=== PATIENT | male | born 1955 | race Two or more races ===

== ENCOUNTER → 2020-06-24 07:51 | Outpatient (BNVA) | payer OTHER, SELFPAY | PROVIDERS: PCP Internal Medicine; Visit Provider Internal Medicine Endocrinology, Diabetes & Metabolism | DX: Z13.89 Encounter for screening for other disorder (principal) | CPT/HCPCS: Q3014 ==

== ENCOUNTER 2020-06-24 21:14 | Emergency (ER) | payer OTHER, SELFPAY ==
[2020-06-24 21:23] VITALS: BP 135/68; BP 142/82; PULSE 76; PULSE 78; RESP 18; TEMP 37.2; O2SAT 94; O2SAT 97; BMI 33.5
--- NOTE | 2020-06-24 21:47 | CT_ITS ---
EXAMINATION: CT ABDOMEN AND PELVIS WITH CONTRAST CLINICAL INFORMATION: Left lower quadrant pain with question of perforated diverticulitis COMPARISON: 11/29/2012 TECHNIQUE: Multidetector volumetric images were obtained from the superior aspect of the liver through the pubic symphysis following administration 85 mL of Omnipaque 350 intravenous contrast. Sagittal and coronal reformatted images were obtained on the technologist's workstation. Oral contrast: No This CT examination was performed using dose optimization techniques as appropriate, variously including the following: *Automated exposure control *Adjustment of mA and/or kV according to patient size (this includes techniques or standardized protocols for targeted exams where dose is matched to indication/reason for exam; i.e. extremities or head) *Use of iterative reconstruction technique DLP: 923 mGy-cm FINDINGS: LUNG BASES: The visualized lung bases are unremarkable. There is partial visualization of a left lower lobe perifissural density. Patient status post median sternotomy. LIVER, GALLBLADDER, AND BILIARY TREE: The liver is normal in size, shape, and attenuation. No focal hepatic lesion or biliary ductal dilatation is present. The gallbladder is unremarkable with no evidence of radiopaque gallstones, gallbladder wall thickening, or obvious pericholecystic inflammatory changes. PANCREAS: Unremarkable. SPLEEN: Unremarkable. ADRENAL GLANDS: Unremarkable. KIDNEYS AND URETERS: The kidneys are normal in size, shape, and attenuation. A small right-sided renal cyst is present. A right-sided extrarenal pelvis is noted. No hydronephrosis, hydroureter, or calculi seen. No perinephric stranding. BLADDER: Unremarkable. GASTROINTESTINAL TRACT: A small hiatal hernia is present. Diverticular changes are present in the colon most marked on the left. At the junction of the descending colon and sigmoid, inflammatory changes are present surrounding the colon with some thickening of the anterior pararenal fascia. These findings are consistent with diverticulitis. No extraluminal air or drainable fluid collections are seen. The small and large bowel are otherwise unremarkable. The appendix is unremarkable. ABDOMINAL WALL: No significant hernia is appreciated. Innumerable calcified injection granulomas are noted in both buttocks. LYMPH NODES: No lymphadenopathy seen. VASCULAR: Calcific aortoiliac atherosclerotic changes are present. PELVIC VISCERA: Is mild BPH with the prostate measuring 4.8 x 4.3 x 4.7 cm. OSSEOUS STRUCTURES: Degenerative changes present in the spine most marked at L5-S1 with endplate sclerosis and posterior osteophyte formation. A vacuum phenomenon is present. There is bony fusion of S1 and S2.. CT/CT abdomen pelvis w con IMPRESSION: Acute uncomplicated diverticulitis at the junction of the descending colon and sigmoid colon. Incidental note made of partially visualized left lower lobe. Fissural density, tiny right renal cyst with extrarenal pelvis and mild BPH
--- NOTE | 2020-06-24 21:56 | ED.ABDPAIN ---
HPI - Abdominal Pain General Chief Complaint: General Medical Stated Complaint: [place],ABD PAIN SINCE WEDNESDAY Time Seen by Provider: 06/24/20 21:47 Source: patient Mode of arrival: EMS Limitations: no limitations History of Present Illness HPI narrative: Patient history of diverticulosis , complaining of left lower quadrant pain for last 3 days got worse today in afternoon after lunch had low-grade fever and chills pain gets worse after he eats something or ambulates for coming in ambulance pain was very bad with movements. Patient feels nauseated, no vomiting no blood in the stool no abdominal distention also complaining of headache no recent COVID contact MD elicited complaint: abdominal pain Pertinent past history: diverticulitis Pain Consistency: constant Location: LLQ Severity: moderate Quality: sharp Radiation: LLQ Exacerbating factors: eating and bowel movement Relieving factors: nothing Related Data Home Medications Medication Instructions Recorded Confirmed insulin aspart U-100 100 unit/mL See Rx Instructions SUBCUT .COMPLEX 06/24/20 06/24/20 subcutaneous solution insulin glargine 100 unit/mL 10 unit SUBCUT QPM 06/24/20 06/24/20 subcutaneous solution rosuvastatin 20 mg tablet 20 mg PO BEDTIME 06/24/20 06/24/20 sertraline 100 mg tablet 100 mg PO DAILY 06/24/20 06/24/20 trazodone 100 mg tablet [id number] mg PO BEDTIME 06/24/20 06/24/20 Previous Rx's Medication Instructions Recorded desmopressin 0.1 mg tablet 0.1 mg PO BID 30 Days #60 tab 06/24/20 levothyroxine 75 mcg capsule 75 mcg PO DAILY 30 Days #30 cap 06/24/20 ciprofloxacin HCl [Cipro] 500 mg PO BID #20 tab 06/25/20 metronidazole [Flagyl] 500 mg PO BID #20 tab 06/25/20 tramadol 50 mg PO Q6H PRN #20 tab 06/25/20 Allergies Allergy/AdvReac Type Severity Reaction Status Date / Time atorvastatin [From LIPITOR] AdvReac Unknown LEG Unverified 03/28/20 15:15 WEAKNESS Review of Systems Review of Systems REVIEW OF SYSTEMS: Pertinent positives and negatives are stated above in the history. GEN: Subjective fever with chills and fatigue HEENT: no nasal congestion, sore throat, ear pain NEURO: no headache, dizziness, focal weakness PULM: no cough, shortness of breath CV: no chest pain, palpitations, LE edema ABD: no vomiting, diarrhea : no dysuria, urgency, frequency SKIN: no rash ROS otherwise negative x 10 Physical Exam Vital Signs: Vital Signs: Last Vital Signs Temp 98.9 F 06/24/20 21:23 Pulse 77 06/25/20 00:56 Resp 16 06/25/20 00:56 BP 146/78 H 06/25/20 00:56 Pulse Ox 97 06/25/20 00:56 Body Mass Index 33.5 VITAL SIGNS: Reviewed. GENERAL: Well developed, well nourished, in no acute distress. HEAD: Normocephalic/atraumatic, EYES: PERRLA No pallor/icterus noted OROPHARYNX: Oral mucosa moist no oral lesions NECK: Supple, no adenopathy LUNGS: Normal breath sounds. No adventitious sounds or accessory muscle use CARDIOVASCULAR: Regular rate and rhythm without noted murmurs, no JVD or lower extremity edema. ABDOMEN: Soft, tender left lower quadrant with guarding and rebound tenderness, non-distended with normal bowel sounds. No rigidity. . No palpable masses or hernias noted MUSCULOSKELETAL: No tenderness, deformities, EXTREMITIES: No cyanosis or edema. SKIN: no rashes, ulcerations, jaundice, pallor, or petechiae NEUROLOGIC: Alert and oriented x 3. Strength and sensation to light touch were grossly intact normal speech MDM - Abdominal Pain MDM Narrative Medical decision making narrative: Patient with acute lower quadrant pain likely diverticulitis workup showed normal WBC count and CT scan showed uncomplicated diverticulitis. COVID-19 test is also negative. Patient received Zosyn in the ER for diverticulitis will discharge him home on cipr and Flagyl advised to follow with PCP Differential Diagnosis Differential diagnosis: Likely abdominal pain and diverticulitis Medical Records Attestation: I reviewed the patient's medical records. Lab Data Attestation: I reviewed the patient's lab results. Result diagrams: 06/24/20 23:03 06/24/20 23:03 Labs: Lab Results 06/24/20 06/24/20 06/24/20 Range/Units 23:03 23:03 23:03 WBC 6.4 (4.8-10.8) X10*3/uL RBC 3.65 L (4.60-5.80) X10*6/uL Hgb 10.7 L (14.0-18.0) g/dl Hct 32.6 L (42-52) % MCV 89.3 (80-98) fL MCH 29.3 (27.0-33.0) pg MCHC 32.8 (31.0-36.0) g/dl RDW 14.0 (11.0-16.0) % Plt Count 184 (160-400) X10*3/uL MPV 10.3 (9.4-12.4) fL Immature Gran % (Auto) 0.5 H (0.0-0.4) % Neut % (Auto) 72.3 (45-73) % Lymph % (Auto) 12.6 L (20-40) % [place] % (Auto) 11.5 H (2-11) % Eos % (Auto) 2.8 (0-4) % Baso % (Auto) 0.3 (0-2) % Lymph # (Auto) 0.8 L (1.2-4.9) X10*3/uL [place] # (Auto) 0.7 (0.1-1.2) X10*3/uL Eos # (Auto) 0.2 (0.0-0.4) X10*3/uL Baso # (Auto) 0.0 (0.0-0.2) X10*3/uL Abs Immat Gran (auto) 0.03 (0.00-0.03) X10*3/uL Absolute Neuts (auto) 4.6 (2.0-8.3) X10*3/uL Absolute Nucleated RBC 0.000 (0.0-0.012) X10*3/uL Nucleated RBC % (auto) 0.0 (0.0-0.2) /100WBC Sodium 132 L (135-145) mmol/L Potassium 3.8 (3.3-5.1) mmol/l Chloride 98 (96-108) mmol/L Carbon Dioxide 26 (22-29) mmol/L Anion Gap 12 (12-20) BUN 19 H (9-16) mg/dL Creatinine 0.86 (0.5-1.4) mg/dL Estim Creat Clear Calc 86.2 Estimated GFR > 60 Random Glucose 199 H (60-115) mg/dL Lactic Acid 0.8 (0.5-2.0) mmol/L Calcium 7.9 L (8.4-10.2) mg/dL Total Bilirubin 0.3 (0.0-1.0) mg/dL Direct Bilirubin < 0.2 (0.0-0.5) mg/dL AST 31 (5-37) U/L ALT 37 (0-40) U/L Alkaline Phosphatase 71 (39-117) U/L Total Protein 6.1 L (6.5-8.0) g/dL Albumin 3.8 (3.5-5.0) g/dL Lipase (8-78) U/L Coronavirus (PCR) (Negative) Influenza Type A (PCR) (Negative) Influenza Type B (PCR) (Negative) RSV RNA Qual (PCR) (Negative) 06/24/20 06/24/20 Range/Units 23:03 23:03 WBC (4.8-10.8) X10*3/uL RBC (4.60-5.80) X10*6/uL Hgb (14.0-18.0) g/dl Hct (42-52) % MCV (80-98) fL MCH (27.0-33.0) pg MCHC (31.0-36.0) g/dl RDW (11.0-16.0) % Plt Count (160-400) X10*3/uL MPV (9.4-12.4) fL Immature Gran % (Auto) (0.0-0.4) % Neut % (Auto) (45-73) % Lymph % (Auto) (20-40) % [place] % (Auto) (2-11) % Eos % (Auto) (0-4) % Baso % (Auto) (0-2) % Lymph # (Auto) (1.2-4.9) X10*3/uL [place] # (Auto) (0.1-1.2) X10*3/uL Eos # (Auto) (0.0-0.4) X10*3/uL Baso # (Auto) (0.0-0.2) X10*3/uL Abs Immat Gran (auto) (0.00-0.03) X10*3/uL Absolute Neuts (auto) (2.0-8.3) X10*3/uL Absolute Nucleated RBC (0.0-0.012) X10*3/uL Nucleated RBC % (auto) (0.0-0.2) /100WBC Sodium (135-145) mmol/L Potassium (3.3-5.1) mmol/l Chloride (96-108) mmol/L Carbon Dioxide (22-29) mmol/L Anion Gap (12-20) BUN (9-16) mg/dL Creatinine (0.5-1.4) mg/dL Estim Creat Clear Calc Estimated GFR Random Glucose (60-115) mg/dL Lactic Acid (0.5-2.0) mmol/L Calcium (8.4-10.2) mg/dL Total Bilirubin (0.0-1.0) mg/dL Direct Bilirubin (0.0-0.5) mg/dL AST (5-37) U/L ALT (0-40) U/L Alkaline Phosphatase (39-117) U/L Total Protein (6.5-8.0) g/dL Albumin (3.5-5.0) g/dL Lipase 11 (8-78) U/L Coronavirus (PCR) NEGATIVE (Negative) Influenza Type A (PCR) NEGATIVE (Negative) Influenza Type B (PCR) NEGATIVE (Negative) RSV RNA Qual (PCR) NEGATIVE (Negative) Imaging Data CT scan - abdomen: Attestation: I personally reviewed and interpreted this imaging study as follows: Radiologist's impression: CT/CT abdomen pelvis w con IMPRESSION: Acute uncomplicated diverticulitis at the junction of the descending colon and sigmoid colon. Discharge Plan Discharge Clinical Impression: Acute diverticulitis Patient Disposition: Home, Self-Care Instructions: Diverticulitis (ED) Additional Instructions: Clear fluids advanced as tolerated. Take antibiotic as prescribed. Pain medication as advised. Report to the ER/PCP if increased pain/vomiting/fever Prescriptions: New ciprofloxacin HCl [Cipro] 500 mg tablet 500 mg PO BID Qty: 20 RF: 0 metronidazole [Flagyl] 500 mg tablet 500 mg PO BID Qty: 20 RF: 0 tramadol 50 mg tablet 50 mg PO Q6H PRN (Reason: pain) Qty: 20 RF: 0 No Action insulin aspart U-100 100 unit/mL solution See Rx Instructions subcut .COMPLEX RF: 0 rosuvastatin 20 mg tablet 20 mg PO BEDTIME RF: 0 sertraline 100 mg tablet 100 mg PO DAILY RF: 0 trazodone 100 mg tablet [id number] mg PO BEDTIME RF: 0 Lantus U-100 Insulin 100 unit/mL solution 10 unit subcut QPM RF: 0 desmopressin 0.1 mg tablet 0.1 mg PO BID 30 Days Qty: 60 RF: 5 levothyroxine 75 mcg capsule 75 mcg PO DAILY 30 Days Qty: 30 RF: 6 PMFSH Past Medical History 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 HTN (hypertension) Hyperlipidemia Myocardial infarction Surgical History History of esophagogastroduodenoscopy (EGD) Hx of cardiac catheterization Hx of colonoscopy Hx of tonsillectomy S/P CABG x 2 Stented coronary artery Family History Family History Father Alzheimer disease Mother Diabetes mellitus Hypertension Stroke CVD (cardiovascular disease) Social History Social History Alcohol intake: never Smoking Status: Never smoker Smoked in Last 30 Days: No Use of substances other than those prescribed or required for medical reasons: No Advance Directives: No Advance Directives Information Provided: No
[2020-06-24 23:12] LABS: MANUAL DIFF FLAG NO
[2020-06-24 23:14] LABS: Basophils Percent Auto 0.3 % (0-2); Eosinophils Absolute Auto 0.2 X10*3/uL (0.0-0.4); Eosinophils Percent Auto 2.8 % (0-4); Hematocrit 32.6 % (42-52); Hemoglobin 10.7 g/dl (14.0-18.0); Imm Gran Abs Auto 0.03 X10*3/uL (0.00-0.03); Imm Gran Pct Auto 0.5 % (0.0-0.4); Lymphocytes Absolute Auto 0.8 X10*3/uL (1.2-4.9); Lymphocytes Percent Auto 12.6 % (20-40); Mean Corpuscular HGB Conc 32.8 g/dl (31.0-36.0); Mean Corpuscular Hemoglobin 29.3 pg (27.0-33.0); Mean Corpuscular Volume 89.3 fL (80-98); Mean Platelet Volume 10.3 fL (9.4-12.4); Monocytes Absolute Auto 0.7 X10*3/uL (0.1-1.2); Monocytes Percent Auto 11.5 % (2-11); Neutrophils Absolute Auto 4.6 X10*3/uL (2.0-8.3); Neutrophils Percent Auto 72.3 % (45-73); Platelet Count 184 X10*3/uL (160-400); Red Blood Count 3.65 X10*6/uL (4.60-5.80); White Blood Count 6.4 X10*3/uL (4.8-10.8)
[2020-06-24] MEDS: Morphine Sulfate 4 MG/ML CARTRIDGE IVPUSH (23:14)
[2020-06-24] MEDS: 0.9 % Sodium Chloride 1,000 ML 999 ML IVCONT (23:14)
[2020-06-24] MEDS: ondansetron HCL 4 MG/2 ML VIAL IVPUSH (23:15)
[2020-06-24 23:34] LABS: Lactic Acid 0.8 mmol/L (0.5-2.0)
[2020-06-24 23:37] LABS: Lipase 11 U/L (8-78)
[2020-06-24 23:38] LABS: Alanine Aminotransferase 37 U/L (0-40); Albumin Level 3.8 g/dL (3.5-5.0); Alkaline Phosphatase 71 U/L (39-117); Anion Gap 12 (12-20); Aspartate Amino Transferase 31 U/L (5-37); Bilirubin Direct < 0.2 mg/dL (0.0-0.5); Bilirubin Total 0.3 mg/dL (0.0-1.0); Blood Urea Nitrogen 19 mg/dL (9-16); Calcium 7.9 mg/dL (8.4-10.2); Carbon Dioxide 26 mmol/L (22-29); Chloride 98 mmol/L (96-108); Creatinine Clr Calc Pharmacy 86.2; Estimated Glomerular Filt Rate > 60; Glucose Random 199 mg/dL (60-115); Potassium 3.8 mmol/l (3.3-5.1); Sodium 132 mmol/L (135-145); Total Protein 6.1 g/dL (6.5-8.0)
[2020-06-25] MEDS: iohexoL 350 MG/ML 100 ML INFUS..BTL 85 ML IV (00:09)
[2020-06-25 00:36] LABS: Influenza A PCR NEGATIVE (Negative); Influenza B PCR NEGATIVE (Negative); Resp Syncy Virus RNA Qual PCR NEGATIVE (Negative); SARS COV2 PCR INHOUSE NEGATIVE (Negative)
[2020-06-25] MEDS: Piperacillin Sodium/Tazobactam 3.375 GM in 0.9 % Sodium Chloride 50 ML IV (00:53)
[2020-06-25] MEDS: Ketorolac Tromethamine 30 MG/ML VIAL IVPUSH (00:53)
[2020-06-25 00:56] VITALS: BP 146/78; PULSE 77; RESP 16; O2SAT 97
== END 2020-06-25 01:58 | disposition home or self-care (01) ==
PROVIDERS: Emergency Provider Internal Medicine
DX: K57.32 Diverticulitis of large intestine without perforation or abscess without bleeding (principal); Z20.828 Contact with and (suspected) exposure to other viral communicable diseases; I10 Essential (primary) hypertension; E11.9 Type 2 diabetes mellitus without complications; Z79.4 Long term (current) use of insulin; Z79.899 Other long term (current) drug therapy
CPT/HCPCS: 0241U; 36415; 74177; 80048; 80076; 83605; 83690; 85025; 87040; 96361; 96365; 96375; 99284; J1885; J2270; J2405; J2543; Q9967

== ENCOUNTER 2020-08-13 11:59 | Outpatient (REF) | payer OTHER, SELFPAY ==
[2020-08-13 13:28] LABS: Blood Urea Nitrogen 20 mg/dL (9-16); Estimated Glomerular Filt Rate > 60
== END 2020-08-13 12:00 | disposition home or self-care (01) ==
LOC: HO.LAB 11:59
PROVIDERS: Emergency Medicine; PCP Internal Medicine; Referring Provider Internal Medicine; Visit Provider Internal Medicine Endocrinology, Diabetes & Metabolism
DX: R10.32 Left lower quadrant pain (principal)
CPT/HCPCS: 36415; 82565; 84520

== ENCOUNTER 2020-08-19 09:19 | Outpatient (REF) | payer OTHER, SELFPAY ==
--- NOTE | ~2020-08-19 | CT_ITS ---
EXAMINATION: CT ABDOMEN AND PELVIS WITH CONTRAST CLINICAL INFORMATION: Left lower quadrant pain. COMPARISON: CT abdomen 06/24/2020 TECHNIQUE: Multidetector volumetric images were obtained from the superior aspect of the liver through the pubic symphysis following administration 85 mL of Omnipaque 350 intravenous contrast. Sagittal and coronal reformatted images were obtained on the technologist's workstation. Oral contrast: No This CT examination was performed using dose optimization techniques as appropriate, variously including the following: *Automated exposure control *Adjustment of mA and/or kV according to patient size (this includes techniques or standardized protocols for targeted exams where dose is matched to indication/reason for exam; i.e. extremities or head) *Use of iterative reconstruction technique DLP: 479 mGy-cm FINDINGS: LUNG BASES: The visualized lung bases are unremarkable. LIVER, GALLBLADDER, AND BILIARY TREE: The liver is normal in size, shape, and attenuation. No focal hepatic lesion or biliary ductal dilatation is present. The gallbladder is unremarkable with no evidence of radiopaque gallstones, gallbladder wall thickening, or obvious pericholecystic inflammatory changes. PANCREAS: Unremarkable. SPLEEN: Unremarkable. ADRENAL GLANDS: Unremarkable. KIDNEYS AND URETERS: The kidneys are normal in size, shape, and attenuation. No hydronephrosis, hydroureter, or calculi seen. No perinephric stranding. BLADDER: Unremarkable. GASTROINTESTINAL TRACT: There is scattered stool, gas and diverticuli seen throughout the colon without distention or mural thickening. The small bowel loops are opacified with oral contrast and are normal caliber. Appendix is normal caliber. ABDOMINAL WALL: No significant hernia is appreciated. LYMPH NODES: Normal VASCULAR: Unremarkable. PELVIC VISCERA: There is mild prostate enlargement with irregular peck and central hypodensity. There are multiple bilateral buttock calcified injection granulomas. OSSEOUS STRUCTURES: There is L5-S1 fusion with degenerative disc changes and vacuum disc phenomena L3-L4 and L4-L5 disc levels. There is grade 1 anterol[address]hesis L3 over L4. CT/CT abdomen pelvis w con IMPRESSION: No acute intra-abdominal process seen. Scattered colonic diverticulosis without diverticulitis.
[2020-08-19] MEDS: iohexoL 350 MG/ML 100 ML INFUS..BTL IV (12:06)
[2020-08-19] MEDS: Barium Sulfate Oral (Berry) 450 ML ORAL.SUSP 900 ML PO (12:06)
== END 2020-08-19 09:20 | disposition home or self-care (01) ==
LOC: HO.CT 09:19
PROVIDERS: PCP Internal Medicine; Visit Provider Emergency Medicine
DX: R10.32 Left lower quadrant pain (principal)
CPT/HCPCS: 74177; Q9967

== ENCOUNTER 2020-12-13 06:24 | Outpatient (REF) | payer OTHER, SELFPAY ==
--- NOTE | ~2020-12-13 | XR_ITS ---
EXAMINATION: XR TIBIA AND FIBULA, LEFT CLINICAL INFORMATION: Left lower leg pain COMPARISON: None TECHNIQUE: AP and lateral views of the left tibia and fibula were obtained. FINDINGS: No fracture or focal osseous lesion. There is a tiny metallic body in the soft tissues anterior to the mid tibia. Surgical clips and vascular calcification posterior to the left knee. Distal to this foreign body is a focus of skin thickening/lump with no underlying radiopaque finding or osseous abnormality. XR/XR tibia fibula LT 2V IMPRESSION: Normal left tibia and fibula. There is a tiny metallic foreign body in the subcutaneous soft tissues anterior to the mid tibia.
[2020-12-13 07:36] LABS: Estimated Average Glucose 180 mg/dL; Hemoglobin A1c % 7.9 %
[2020-12-13 07:37] LABS: Creatinine Urine 18.01 mg/dL; Microalbumin Urine < 5.0 mg/L
[2020-12-13 07:39] LABS: Alanine Aminotransferase 20 U/L (0-40); Albumin Level 4.4 g/dL (3.5-5.0); Alkaline Phosphatase 49 U/L (39-117); Aspartate Amino Transferase 23 U/L (5-37); Bilirubin Direct 0.2 mg/dL (0.0-0.5); Bilirubin Total 0.5 mg/dL (0.0-1.0); Cholesterol 217 mg/dL; HDL Cholesterol 63 mg/dL; LDL Cholesterol Calculated 132 mg/dl; Total Protein 6.9 g/dL (6.5-8.0); Triglycerides 114 mg/dL
[2020-12-13 07:51] LABS: Alanine Aminotransferase 20 U/L (0-40); Albumin Level 4.4 g/dL (3.5-5.0); Alkaline Phosphatase 49 U/L (39-117); Anion Gap 12 (12-20); Aspartate Amino Transferase 23 U/L (5-37); Bilirubin Total 0.5 mg/dL (0.0-1.0); Blood Urea Nitrogen 12 mg/dL (9-16); Calcium 9.7 mg/dL (8.4-10.2); Carbon Dioxide 29 mmol/L (22-29); Chloride 92 mmol/L (96-108); Estimated Glomerular Filt Rate > 60; Glucose Fasting 152 mg/dL (60-99); Potassium 4.3 mmol/L (3.3-5.1); Sodium 129 mmol/L (135-145); Total Protein 6.8 g/dL (6.5-8.0)
[2020-12-13 07:53] LABS: Osmolality, Serum 274 mosm/kg (281-305)
[2020-12-13 07:54] LABS: Osmolality Urine 114 mosm/kg (373-1093)
[2020-12-13 08:02] LABS: Free T4 (Free Thyroxine) 0.92 ng/dL (0.71-1.85); Thyroid Stimulating Hormone 0.17 uIU/mL (0.32-4.0)
== END 2020-12-13 06:25 | disposition home or self-care (01) ==
LOC: HO.LAB 06:24
PROVIDERS: Internal Medicine Endocrinology, Diabetes & Metabolism; PCP Internal Medicine; Visit Provider Internal Medicine
DX: E23.2 Diabetes insipidus (principal); I10 Essential (primary) hypertension
CPT/HCPCS: 36415; 73590; 80053; 80061; 80076; 82043; 82248; 83036; 83930; 83935; 84439; 84443

== ENCOUNTER → 2020-12-16 13:01 | Outpatient (BNVA) | payer OTHER, SELFPAY | PROVIDERS: PCP Internal Medicine; Visit Provider Internal Medicine Endocrinology, Diabetes & Metabolism | DX: E23.2 Diabetes insipidus (principal); E03.8 Other specified hypothyroidism | CPT/HCPCS: 99212 ==

== ENCOUNTER 2020-12-23 05:55 | Outpatient (REF) | payer OTHER, SELFPAY ==
[2020-12-23 08:07] LABS: Osmolality, Serum 283 mosm/kg (281-305)
[2020-12-23 08:14] LABS: Anion Gap 15 (12-20); Blood Urea Nitrogen 12 mg/dL (9-16); Calcium 9.7 mg/dL (8.4-10.2); Carbon Dioxide 27 mmol/L (22-29); Chloride 93 mmol/L (96-108); Estimated Glomerular Filt Rate > 60; Glucose Fasting 124 mg/dL (60-99); Sodium 130 mmol/L (135-145)
[2020-12-23 08:39] LABS: Free T4 (Free Thyroxine) 1.01 ng/dL (0.71-1.85)
[2020-12-23 08:50] LABS: Osmolality Urine 174 mosm/kg (373-1093)
[2020-12-24 16:56] LABS: Triiodothyronine T3 Total 74 ng/dL (76-181)
[2020-12-29 00:12] LABS: FT4 by Equilib. Dialysis 1.5 ng/dL (0.9-2.2)
== END 2020-12-23 05:56 | disposition home or self-care (01) ==
LOC: HO.LAB 05:55
PROVIDERS: PCP Internal Medicine; Visit Provider Internal Medicine Endocrinology, Diabetes & Metabolism
DX: E03.8 Other specified hypothyroidism (principal); E23.2 Diabetes insipidus
CPT/HCPCS: 36415; 80048; 83930; 83935; 84439; 84480

== ENCOUNTER 2021-01-01 06:09 | Outpatient (REF) | payer OTHER, SELFPAY ==
[2021-01-01 07:37] LABS: Alanine Aminotransferase 22 U/L (0-40); Aspartate Amino Transferase 26 U/L (5-37); Lipase 11 U/L (8-78)
[2021-01-01 07:47] LABS: ~HepC Num1 15.56 S/CO (0.00-0.79); ~Hepatitis C Antibody Reactive (Nonreactive)
[2021-01-01 08:14] LABS: Anion Gap 9 (12-20); Blood Urea Nitrogen 11 mg/dL (9-16); Calcium 9.2 mg/dL (8.4-10.2); Carbon Dioxide 30 mmol/L (22-29); Chloride 98 mmol/L (96-108); Estimated Glomerular Filt Rate > 60; Glucose Random 122 mg/dL (60-115); Potassium 4.7 mmol/L (3.3-5.1); Sodium 132 mmol/L (135-145)
[2021-01-01 08:32] LABS: HBsAGNum1 0.22 S/CO (0.00-0.99); Hepatitis B Surface Antigen Negative (Negative); ~Hepatitis B Surface Antibody REACTIVE (Nonreactive)
[2021-01-01 10:04] LABS: HBc Num1 11.23 S/CO (0.00-0.79); Hepatitis B Core Antibody Reactive (Nonreactive)
[2021-01-07 20:12] LABS: HepC Viral Load <15 IU/mL
[2021-01-17 09:13] LABS: HCV Log PCR <1.18
== END 2021-01-01 06:10 | disposition home or self-care (01) ==
LOC: HO.LAB 06:09
PROVIDERS: Absent Provider Internal Medicine Endocrinology, Diabetes & Metabolism; PCP Internal Medicine; Visit Provider Emergency Medicine
DX: E23.2 Diabetes insipidus (principal); K76.0 Fatty (change of) liver, not elsewhere classified; R10.11 Right upper quadrant pain; Z86.19 Personal history of other infectious and parasitic diseases
CPT/HCPCS: 36415; 80048; 83690; 84450; 84460; 86704; 86706; 86803; 87340; 87522

== ENCOUNTER 2021-02-10 17:39 | Emergency (ER) | payer OTHER, SELFPAY | END 2021-02-10 20:23 | disposition left against medical advice (07) | PROVIDERS: Emergency Provider Emergency Medicine; PCP Internal Medicine | DX: R07.9 Chest pain, unspecified (principal) ==

== ENCOUNTER 2021-02-11 15:59 | Emergency (ER) | payer OTHER, SELFPAY ==
--- NOTE | 2021-02-11 | ECG_ITS ---
Test Reason : ABDOMIAL PAIN Blood Pressure : / mmHG Vent. Rate : 055 BPM Atrial Rate : 055 BPM P-R Int : 162 ms QRS Dur : 096 ms QT Int : 442 ms P-R-T Axes : 042 072 101 degrees QTc Int : 422 ms Sinus bradycardia Cannot rule out Anterior infarct , age undetermined Abnormal ECG When compared with ECG of 04-JAN-2019 21:12, Nonspecific T wave abnormality no longer evident in Inferior leads T wave inversion less evident in Lateral leads Referred By: Generic ED Physician Electronically Signed By:Michael Ozuna
--- NOTE | ~2021-02-11 | CT_ITS ---
EXAMINATION: CT ABDOMEN AND PELVIS WITHOUT CONTRAST CLINICAL INFORMATION: Reason for Exam abd pain history of diverticulitis . COMPARISON: No pertinent prior studies are available for comparison. TECHNIQUE: Multidetector volumetric imaging was performed from the superior aspect of the liver through the pubic symphysis without contrast per renal stone protocol. Sagittal and coronal reformatted images were obtained on the technologist workstation. This CT examination was performed using dose optimization techniques as appropriate, variously including the following: *Automated exposure control *Adjustment of mA and/or kV according to patient size (this includes techniques or standardized protocols for targeted exams where dose is matched to indication/reason for exam; i.e. extremities or head) *Use of iterative reconstruction technique DLP: 586 mGy-cm. FINDINGS: LUNG BASES: The visualized lung bases are unremarkable. Patient is status post sternotomy. LIVER, GALLBLADDER, BILIARY TREE: The non-contrast liver is normal in size, shape, and attenuation. No focal hepatic lesion or biliary ductal dilatation is present. The gallbladder is contracted but otherwise unremarkable with no evidence of radiopaque gallstones, gallbladder wall thickening, or obvious pericholecystic inflammatory changes. PANCREAS: Atrophic SPLEEN: Unremarkable. ADRENAL GLANDS: Unremarkable. KIDNEYS AND URETERS: The kidneys are normal in size, shape, and attenuation. No hydronephrosis, hydroureter, or calculi seen. No perinephric stranding. BLADDER: Unremarkable. GASTROINTESTINAL TRACT: Prominent amount of stool in the colon. I do not appreciate any obvious obstructive change. Scattered colonic diverticula but no obvious diverticulitis. Normal-appearing appendix in the right lower quadrant. Visualized small bowel unremarkable ABDOMINAL WALL: No significant hernia is appreciated. LYMPHOVASCULAR STRUCTURES: Vascular calcification within the aorta iliac system. No bulky adenopathy.. PELVIC VISCERA: Unremarkable. OSSEUS STRUCTURES: Transitional vertebra at the lumbosacral junction similar to the prior study CT/CT abdomen pelvis wo con IMPRESSION: Chronic appearing changes as described above with no acute superimposed process compared to the 08/19/2020 exam.
[2021-02-11 17:00] VITALS: BP 147/67; PULSE 57; RESP 18; TEMP 36.7; O2SAT 98; BMI 29.9
--- NOTE | 2021-02-11 19:48 | ED.ABDPAIN ---
HPI - Abdominal Pain General Chief Complaint: Abdominal Pain Stated Complaint: abdominal pain Time Seen by Provider: 02/11/21 19:45 Source: patient Mode of arrival: ambulatory Limitations: no limitations History of Present Illness HPI narrative: 65 years old male came in for evaluation of abdominal pain. Abdominal pain started 5 days ago, localized to the upper abdomen, feeling like colicky pain, with no radiation, worsening by food, no alleviating factor, associated with nausea but no vomiting, patient had loose bowel movement this morning but unable to pass gas. Never had similar pain in the past. Patient has been eating with normal appetite. Related Data Home Medications Medication Instructions Recorded Confirmed insulin aspart U-100 100 unit/mL See Rx Instructions SUBCUT .COMPLEX 06/24/20 12/16/20 subcutaneous solution insulin glargine 100 unit/mL 10 unit SUBCUT QPM 06/24/20 12/16/20 subcutaneous solution (Lantus U-100 Insulin) sertraline 100 mg tablet 100 mg PO DAILY 06/24/20 12/16/20 trazodone 100 mg tablet [id number] mg PO BEDTIME 06/24/20 12/16/20 Previous Rx's Medication Instructions Recorded ciprofloxacin HCl 500 mg tablet 500 mg PO BID #20 tab 06/25/20 (Cipro) metronidazole 500 mg tablet 500 mg PO BID #20 tab 06/25/20 (Flagyl) tramadol 50 mg tablet 50 mg PO Q6H PRN #20 tab 06/25/20 aspirin 81 mg tablet,delayed 81 mg PO DAILY #90 tab 11/11/20 release (Adult Low Dose Aspirin) rosuvastatin 20 mg tablet 20 mg PO DAILY #30 tab 11/12/20 desmopressin 0.1 mg tablet 0.1 mg PO BEDTIME 30 Days #30 tab 12/16/20 levothyroxine 88 mcg tablet 88 mcg PO DAILY 90 Days #90 tab 12/16/20 Allergies Allergy/AdvReac Type Severity Reaction Status Date / Time atorvastatin [From LIPITOR] AdvReac Unknown LEG Unverified 03/28/20 15:15 WEAKNESS lisinopril AdvReac Unknown Verified 02/11/21 17:00 Review of Systems Review of Systems All other systems are reviewed and are negative Constitutional: Reports as per HPI and Reports no additional constitutional complaints Eyes: Reports as per HPI and Reports no additional eye complaints Reports system reviewed and no additional complaints, except as documented Cardiovascular: Reports as per HPI and Reports no additional cardiovascular complaints Respiratory: Reports as per HPI and Reports no additional respiratory complaints Gastrointestinal: Reports as per HPI and Reports no additional gastrointestinal complaints Genitourinary: Reports no additional female genitourinary complaints Musculoskeletal: Reports no additional musculoskeletal complaints Skin/Breast: Reports system reviewed and no additional complaints, except as docu Psychiatric: Reports no additional psychiatric complaints Endocrine: Reports no additional endocrine complaints Hematologic/Lymphatic: Reports no additional hematologic/lymphatic complaints Allergic/Immunologic: Reports no additional allergic/immunologic complaints Reports system reviewed and no additional complaints, except as documented and Reports Abnormal speech present Physical Exam Vital Signs: Vital Signs: Last Vital Signs Temp 98.2 F 02/11/21 21:12 Pulse 56 02/11/21 21:12 Resp 16 02/11/21 21:12 BP 141/69 H 02/11/21 21:12 Pulse Ox 99 02/11/21 21:12 Body Mass Index 29.9 Vital signs have been reviewed as appeared to be correct. Blood pressure normal. Heart rate normal. Respiration rate normal. Temperature normal. Oxygen saturation normal. Appearance: Alert. Oriented X3. No acute distress. Head: Normal external exam. Normocephalic. Atraumatic. No Ruiz signs noted. No raccoon eyes noted Eyes: PERRLA. EOMI. Conjunctiva and sclera normal. Eyelids normal. ENT: TM's Normal. Pharynx normal. Uvula midline. Moist mucous membranes. No trismus noted. No drooling noted. No muffled voice noted. Neck: Normal inspection. Neck supple. FROM. No adenopathy. Thyroid Normal. No meningeal signs. No neck mass noted. CVS: Normal heart rate and rhythm. Heart sound normal. No murmurs noted. Pulses normal throughout. Respiratory: No respiratory distress. Painless inspiration. Breath sounds normal. No wheezes/rales/rhonchi noted. Chest nontender. No accessory muscle usage noted or decreased air movement noted. Abdomen: Soft and nontender. Bowel sounds normal in all 4 quadrants. No distention noted. No organomegaly noted. No visible injury noted. Back: No CVA tenderness. Full range of motion noted. Skin: Skin warm and dry. Normal skin color. Normal skin turgor. No rashes/lesions/lacerations noted. Extremities: No lower extremity edema. Extremities exhibit normal range of motion. Extremities nontender. Neuro: Oriented X 3. No motor deficit. No sensory deficit. Reflexes normal. Course Course Course Narrative: Assessment and plan. 65-year-old male came in with 5 days of abdominal pain, CT of the abdomen pelvis is consistent with constipation. No other acute pathology found on the CT. Chronic hyponatremia patient was diagnosed with diabetes insipidus. Patient was instructed to follow-up with PCP and get him referral to GI MDM - Abdominal Pain Medical Records Attestation: I reviewed the patient's medical records. Lab Data Attestation: I reviewed the patient's lab results. Result diagrams: 02/11/21 20:34 02/11/21 20:34 Labs: Lab Results 02/11/21 02/11/21 02/11/21 Range/Units 20:34 20:34 20:34 WBC 6.8 (4.8-10.8) X10*3/uL RBC 4.06 L (4.60-5.80) X10*6/uL Hgb 12.1 L (14.0-18.0) g/dl Hct 35.4 L (42-52) % MCV 87.2 (80-98) fL MCH 29.8 (27.0-33.0) pg MCHC 34.2 (31.0-36.0) g/dl RDW 13.7 (11.0-16.0) % Plt Count 195 (160-400) X10*3/uL MPV 9.6 (9.4-12.4) fL Immature Gran % (Auto) 0.1 (0.0-0.4) % Neut % (Auto) 69.4 (45-73) % Lymph % (Auto) 17.5 L (20-40) % Arroyo % (Auto) 10.8 (2-11) % Eos % (Auto) 2.1 (0-4) % Baso % (Auto) 0.1 (0-2) % Lymph # (Auto) 1.2 (1.2-4.9) X10*3/uL [place]royo # (Auto) 0.7 (0.1-1.2) X10*3/uL Eos # (Auto) 0.1 (0.0-0.4) X10*3/uL Baso # (Auto) 0.0 (0.0-0.2) X10*3/uL Abs Immat Gran (auto) 0.01 (0.00-0.03) X10*3/uL Absolute Neuts (auto) 4.7 (2.0-8.3) X10*3/uL Absolute Nucleated RBC 0.000 (0.0-0.012) X10*3/uL Nucleated RBC % (auto) 0.0 (0.0-0.2) /100WBC Sodium 127 L (135-145) mmol/L Potassium 4.4 (3.3-5.1) mmol/L Chloride 93 L (96-108) mmol/L Carbon Dioxide 25 (22-29) mmol/L Anion Gap 13 (12-20) BUN 13 (9-16) mg/dL Creatinine 0.66 (0.5-1.4) mg/dL Estim Creat Clear Calc 105.0 Estimated GFR > 60 Random Glucose 98 (60-115) mg/dL Calcium 8.7 (8.4-10.2) mg/dL Total Bilirubin 0.3 (0.0-1.0) mg/dL Direct Bilirubin < 0.2 (0.0-0.5) mg/dL AST 32 (5-37) U/L ALT 31 (0-40) U/L Alkaline Phosphatase 54 (39-117) U/L Troponin I High Sens 3.9 (<3.5-35.0) ng/L B-Natriuretic Peptide 56 (<100) pg/mL Total Protein 6.8 (6.5-8.0) g/dL Albumin 4.3 (3.5-5.0) g/dL Lipase 8 (8-78) U/L Imaging Data CT scan - abdomen: Radiologist's impression: Chronic appearing changes as described above with no acute superimposed process compared to the 08/19/2020 exam. Discharge Plan Discharge Clinical Impression: Chronic hyponatremia Abdominal pain Qualifiers: Abdominal location: unspecified location Qualified Code(s): R10.9 - Unspecified abdominal pain Patient Disposition: Home, Self-Care Instructions: Abdominal Pain (ED) Prescriptions: No Action aspirin [Adult Low Dose Aspirin] 81 mg tablet,delayed release (DR/EC) 81 mg PO DAILY Qty: 90 RF: 0 rosuvastatin 20 mg tablet 20 mg PO DAILY Qty: 30 RF: 3 ciprofloxacin HCl [Cipro] 500 mg tablet 500 mg PO BID Qty: 20 RF: 0 metronidazole [Flagyl] 500 mg tablet 500 mg PO BID Qty: 20 RF: 0 tramadol 50 mg tablet 50 mg PO Q6H PRN (Reason: pain) Qty: 20 RF: 0 desmopressin 0.1 mg tablet 0.1 mg PO BEDTIME 30 Days Qty: 30 RF: 5 levothyroxine 88 mcg tablet 88 mcg PO DAILY 90 Days Qty: 90 RF: 2 insulin aspart U-100 100 unit/mL solution See Rx Instructions subcut .COMPLEX RF: 0 sertraline 100 mg tablet 100 mg PO DAILY RF: 0 trazodone 100 mg tablet [id number] mg PO BEDTIME RF: 0 Lantus U-100 Insulin 100 unit/mL solution 10 unit subcut QPM RF: 0 Referrals: Gurjit Atkins MD [Primary Care Provider] - 2 days [facility] Past Medical History 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
--- NOTE | 2021-02-11 19:57 | PC.NURSE ---
PT AMBULATED TO CT SCAN WITHOUT ISSUE. CLIENT SEEN EATING A COOKIE IN HIS ROOM AND DRINKING WATER. CLIENT APPEARED IN NAD.
[2021-02-11 20:06] VITALS: BP 166/69; PULSE 58; RESP 18; TEMP 36.9; O2SAT 95
[2021-02-11] MEDS: 0.9 % Sodium Chloride 1,000 ML 999 ML IVCONT (20:07)
[2021-02-11] MEDS: Famotidine/PF 20 MG/2 ML VIAL IVPUSH (20:07)
[2021-02-11 20:38] LABS: MANUAL DIFF FLAG NO
[2021-02-11 20:39] LABS: Basophils Percent Auto 0.1 % (0-2); Eosinophils Absolute Auto 0.1 X10*3/uL (0.0-0.4); Eosinophils Percent Auto 2.1 % (0-4); Hematocrit 35.4 % (42-52); Hemoglobin 12.1 g/dl (14.0-18.0); Imm Gran Abs Auto 0.01 X10*3/uL (0.00-0.03); Imm Gran Pct Auto 0.1 % (0.0-0.4); Lymphocytes Absolute Auto 1.2 X10*3/uL (1.2-4.9); Lymphocytes Percent Auto 17.5 % (20-40); Mean Corpuscular HGB Conc 34.2 g/dl (31.0-36.0); Mean Corpuscular Hemoglobin 29.8 pg (27.0-33.0); Mean Corpuscular Volume 87.2 fL (80-98); Mean Platelet Volume 9.6 fL (9.4-12.4); Monocytes Absolute Auto 0.7 X10*3/uL (0.1-1.2); Monocytes Percent Auto 10.8 % (2-11); Neutrophils Absolute Auto 4.7 X10*3/uL (2.0-8.3); Neutrophils Percent Auto 69.4 % (45-73); Platelet Count 195 X10*3/uL (160-400); Red Blood Count 4.06 X10*6/uL (4.60-5.80); Red Cell Distribution Width 13.7 % (11.0-16.0); White Blood Count 6.8 X10*3/uL (4.8-10.8)
[2021-02-11 21:02] LABS: Alanine Aminotransferase 31 U/L (0-40); Albumin Level 4.3 g/dL (3.5-5.0); Alkaline Phosphatase 54 U/L (39-117); Anion Gap 13 (12-20); Aspartate Amino Transferase 32 U/L (5-37); Bilirubin Direct < 0.2 mg/dL (0.0-0.5); Bilirubin Total 0.3 mg/dL (0.0-1.0); Blood Urea Nitrogen 13 mg/dL (9-16); Calcium 8.7 mg/dL (8.4-10.2); Carbon Dioxide 25 mmol/L (22-29); Chloride 93 mmol/L (96-108); Estimated Glomerular Filt Rate > 60; Glucose Random 98 mg/dL (60-115); Lipase 8 U/L (8-78); Potassium 4.4 mmol/L (3.3-5.1); Sodium 127 mmol/L (135-145); Total Protein 6.8 g/dL (6.5-8.0)
[2021-02-11 21:06] LABS: B Type Natriuretic Peptide 56 pg/mL (<100); Troponin-I High Sensitivity 3.9 ng/L (<3.5-35.0)
[2021-02-11 21:12] VITALS: BP 141/69; PULSE 56; RESP 16; TEMP 36.8; O2SAT 99
--- NOTE | 2021-02-11 21:33 | PC.NURSE ---
pt ambulated to bathroom for urine sample
[2021-02-11 21:41] VITALS: BP 154/71; PULSE 100; RESP 18; TEMP 36.9; O2SAT 100
[2021-02-11 21:50] LABS: Glucose Urine UA NEG (NEG); Leukocyte Esterase Urine NEG (NEG); Nitrite Urine NEG (NEG); Specific Gravity - Urine 1.015 (1.005-1.025); Urine Blood NEG (NEG); Urine Ketones NEG (NEG); Urine Protein NEG (NEG-TRACE)
[2021-02-11 22:01] LABS: Appearance Urine CLEAR; Color Urine YELLOW
== END 2021-02-11 22:09 | disposition home or self-care (01) ==
PROVIDERS: Emergency Provider Emergency Medicine; PCP Internal Medicine
DX: E87.1 Hypo-osmolality and hyponatremia (principal); R10.9 Unspecified abdominal pain; I25.10 Atherosclerotic heart disease of native coronary artery without angina pectoris; E11.9 Type 2 diabetes mellitus without complications; Z79.4 Long term (current) use of insulin; Z79.899 Other long term (current) drug therapy
CPT/HCPCS: 36415; 74176; 80048; 80076; 81003; 83690; 83880; 84484; 85025; 93005; 96365; 96375; 99284

== ENCOUNTER 2021-02-27 06:47 | Outpatient (REF) | payer OTHER, SELFPAY ==
[2021-02-27 07:48] LABS: Anion Gap 8 (12-20); Blood Urea Nitrogen 10 mg/dL (9-16); Calcium 9.3 mg/dL (8.4-10.2); Carbon Dioxide 31 mmol/L (22-29); Chloride 100 mmol/L (96-108); Estimated Glomerular Filt Rate > 60; Glucose Random 148 mg/dL (60-115); Potassium 4.4 mmol/L (3.3-5.1); Sodium 135 mmol/L (135-145)
[2021-02-27 08:09] LABS: Free T4 (Free Thyroxine) 0.84 ng/dL (0.71-1.85); Thyroid Stimulating Hormone 1.69 uIU/mL (0.32-4.0)
[2021-02-27 08:23] LABS: Osmolality, Serum 293 mosm/kg (281-305)
[2021-02-27 09:46] LABS: Osmolality Urine 123 mosm/kg (373-1093)
[2021-02-28 13:51] LABS: Follicle Stimulating Hormone 8.9 mIU/mL (1.6-8.0); Lutenizing Hormone 4.3 mIU/mL (1.6-15.2); Prolactin 6.2 ng/mL (2.0-18.0); Triiodothyronine T3 Total 62 ng/dL (76-181)
[2021-02-28 16:37] LABS: Adrenocorticotropic Hormone 34 pg/mL (6-50)
[2021-02-28 19:10] LABS: Sex Hormone Binding Globulin 39 nmol/L (22-77)
[2021-03-03 13:51] LABS: IGF-1 (Somatomedin C) 106 ng/mL (41-279); IGF-1 Z Score (Male) -0.3 SD (-2.0 - +2.0)
[2021-03-04 16:16] LABS: Testosterone, Free 79.1 pg/mL (35.0-155.0); Testosterone, Total 460 ng/dL (250-1100)
== END 2021-02-27 06:48 | disposition home or self-care (01) ==
LOC: HO.LAB 06:47
PROVIDERS: PCP Internal Medicine; Visit Provider Internal Medicine
DX: E23.2 Diabetes insipidus (principal)
CPT/HCPCS: 36415; 80048; 82024; 82533; 83001; 83002; 83930; 83935; 84146; 84270; 84305; 84402; 84403; 84439; 84443; 84480

== ENCOUNTER 2021-03-03 06:11 | Outpatient (REF) | payer OTHER, SELFPAY ==
[2021-03-03 07:19] LABS: Osmolality Urine 445 mosm/kg (373-1093)
[2021-03-03 07:28] LABS: Osmolality, Serum 282 mosm/kg (281-305)
[2021-03-03 07:34] LABS: Anion Gap 10 (12-20); Blood Urea Nitrogen 16 mg/dL (9-16); Calcium 9.3 mg/dL (8.4-10.2); Carbon Dioxide 31 mmol/L (22-29); Chloride 95 mmol/L (96-108); Estimated Glomerular Filt Rate > 60; Glucose Random 150 mg/dL (60-115); Potassium 5.1 mmol/L (3.3-5.1); Sodium 131 mmol/L (135-145)
== END 2021-03-03 06:12 | disposition home or self-care (01) ==
LOC: HO.LAB 06:11
PROVIDERS: PCP Internal Medicine; Visit Provider Internal Medicine
DX: E23.2 Diabetes insipidus (principal)
CPT/HCPCS: 36415; 80048; 83930; 83935

== ENCOUNTER 2021-03-04 06:08 | Outpatient (REF) | payer OTHER, SELFPAY ==
[2021-03-04 08:14] LABS: Anion Gap 10 (12-20); Blood Urea Nitrogen 13 mg/dL (9-16); Calcium 9.3 mg/dL (8.4-10.2); Carbon Dioxide 29 mmol/L (22-29); Chloride 102 mmol/L (96-108); Estimated Glomerular Filt Rate > 60; Glucose Random 155 mg/dL (60-115); Sodium 136 mmol/L (135-145)
== END 2021-03-04 06:09 | disposition home or self-care (01) ==
LOC: HO.LAB 06:08
PROVIDERS: PCP Internal Medicine; Visit Provider Internal Medicine
DX: E23.2 Diabetes insipidus (principal)
CPT/HCPCS: 36415; 80048

== ENCOUNTER 2021-03-05 15:20 | Outpatient (REF) | payer OTHER, SELFPAY ==
[2021-03-05 17:01] LABS: Anion Gap 12 (12-20); Blood Urea Nitrogen 20 mg/dL (9-16); Calcium 9.6 mg/dL (8.4-10.2); Carbon Dioxide 28 mmol/L (22-29); Chloride 101 mmol/L (96-108); Estimated Glomerular Filt Rate > 60; Glucose Random 99 mg/dL (60-115); Potassium 4.3 mmol/L (3.3-5.1); Sodium 137 mmol/L (135-145)
== END 2021-03-05 15:21 | disposition home or self-care (01) ==
LOC: HO.LAB 15:20
PROVIDERS: PCP Internal Medicine; Visit Provider Internal Medicine
DX: E23.2 Diabetes insipidus (principal)
CPT/HCPCS: 36415; 80048

== ENCOUNTER 2021-03-06 14:12 | Emergency (ER) | payer OTHER, SELFPAY ==
[2021-03-06 14:14] VITALS: BP 139/57; PULSE 70; RESP 16; TEMP 36.8; O2SAT 98; BMI 28.1
--- NOTE | 2021-03-06 14:48 | ECG_ITS ---
Test Reason : ABNORMAL LABS Blood Pressure : / mmHG Vent. Rate : 068 BPM Atrial Rate : 068 BPM P-R Int : 152 ms QRS Dur : 094 ms QT Int : 468 ms P-R-T Axes : 014 066 093 degrees QTc Int : 497 ms Normal sinus rhythm Normal ECG When compared with ECG of 11-FEB-2021 17:14, QT has lengthened Referred By: Yuni Martines Electronically Signed By:GEE SCHWARTZ
--- NOTE | 2021-03-06 14:55 | ED.RECABL ---
HPI - Recheck/Abnormal Lab/Rx General Chief Complaint: Recheck/Abnormal Lab/Rx Stated Complaint: abnormal labs Time Seen by Provider: 03/06/21 14:33 Source: patient Mode of arrival: ambulatory History of Present Illness HPI narrative: 65-year-old male with a past medical history of CAD, central hypothyroidism, CHF, diabetes insipidus secondary to vasopressin deficiency, HTN, cardiac catheterization, HLD, [place] s/p CABG x2, presenting to the ED complaining of suspected abnormal sodium secondary to headache, generalized fatigue/weakness, and confusion. Admits to similar symptoms in the past. Denies fever, chills, new SOB/CP, abdominal pain, nausea/vomiting. Reports increased water intake and polyuria Related Data Home Medications Medication Instructions Recorded Confirmed insulin aspart U-100 100 unit/mL See Rx Instructions SUBCUT .COMPLEX 06/24/20 12/16/20 subcutaneous solution insulin glargine 100 unit/mL 10 unit SUBCUT QPM 06/24/20 12/16/20 subcutaneous solution (Lantus U-100 Insulin) sertraline 100 mg tablet 100 mg PO DAILY 06/24/20 12/16/20 trazodone 100 mg tablet [id number] mg PO BEDTIME 06/24/20 12/16/20 Previous Rx's Medication Instructions Recorded ciprofloxacin HCl 500 mg tablet 500 mg PO BID #20 tab 06/25/20 (Cipro) metronidazole 500 mg tablet 500 mg PO BID #20 tab 06/25/20 (Flagyl) tramadol 50 mg tablet 50 mg PO Q6H PRN #20 tab 06/25/20 aspirin 81 mg tablet,delayed 81 mg PO DAILY #90 tab 11/11/20 release (Adult Low Dose Aspirin) rosuvastatin 20 mg tablet 20 mg PO DAILY #30 tab 11/12/20 desmopressin 0.1 mg tablet 0.1 mg PO BEDTIME 30 Days #30 tab 12/16/20 levothyroxine 88 mcg tablet 88 mcg PO DAILY 90 Days #90 tab 12/16/20 Allergies Allergy/AdvReac Type Severity Reaction Status Date / Time atorvastatin [From LIPITOR] AdvReac Unknown LEG Unverified 03/28/20 15:15 WEAKNESS lisinopril AdvReac Unknown Verified 02/11/21 17:00 Review of Systems Review of Systems: Constitutional: No Fever, No Chills, + Fatigue, + Malaise ENT/Mouth: No Ear Pain, No Nasal Congestion, No sore throat, No Rhinorrhea Eyes: No Eye Pain, No Swelling, No Redness, No Foreign Body, No Discharge, No Vision Changes Cardiovascular: No Chest Pain, No SOB,No Edema, No Palpitations Respiratory: No Cough, No Sputum, No Wheezing, No Dyspnea Gastrointestinal: No Nausea, No Vomiting, No Diarrhea, No Constipation, No Abdominal pain Genitourinary: No Dysuria, No Urinary Frequency, No Hematuria, No Flank Pain, No Urinary Flow Changes Musculoskeletal: No joint pain, No Myalgias Skin: No Skin Lesions, No rash Neuro: + Weakness, No Numbness, No Dizziness, + Headache Endocrine: + Polyuria, + Polydipsia Yes all other systems are reviewed and are negative Neurologic: Denies Abnormal speech present [facility] Past Medical History Attestation statement: The following information was validated with the patient. 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 HTN (hypertension) Hyperlipidemia Myocardial infarction Surgical History History of esophagogastroduodenoscopy (EGD) Hx of cardiac catheterization Hx of colonoscopy Hx of tonsillectomy S/P CABG x 2 Stented coronary artery Family History Family History Father Alzheimer disease Mother Diabetes mellitus Hypertension Stroke CVD (cardiovascular disease) Social History Social History Alcohol intake: never Smoked in Last 30 Days: No Use of substances other than those prescribed or required for medical reasons: No Advance Directives: No Advance Directives Information Provided: No Physical Exam Vital Signs: Vital Signs: Last Vital Signs Temp 98.5 F 03/06/21 15:20 Pulse 66 03/06/21 15:20 Resp 18 03/06/21 15:20 BP 106/52 L 03/06/21 15:20 Pulse Ox 97 03/06/21 15:20 Body Mass Index 28.1 Const: General: cooperative and healthy appearing Orientation/consciousness: patient oriented x3 Limitations: no limitations HENMT: Head: Yes normal to inspection Ears: hearing grossly normal bilaterally General nose exam: Normal external nose present Face and sinus: Yes normal facial exam Eyes: General: appearance normal, both eyes and all related structures EOM: EOMs intact bilaterally Neck: Neck: Yes normal visual inspection Resp: Effort & Inspection: normal respiratory effort Auscultation: clear to auscultation bilaterally, no rales and no wheezes Cardio: Rate: regular rate Heart sounds: S1 normal heart sound present and S2 normal heart sound present GI: Inspection: Yes normal to inspection Palpation (GI): Soft to palpation, nontender and no guarding Skin: Rashes: no rashes Wounds: no wounds Neuro: General: patient oriented x3, gait normal, tone normal, moves all extremities and no focal motor deficits Cognition (Neuro): normal cognition Speech: No Abnormal speech present Gait exam (Neuro): Normal gait present Extrem: General: Yes normal to inspection Course Course Course Narrative: -H&H at patient's baseline, sodium 134 > discussed results with patient including worrisome signs and symptoms and strict return precautions and needed continuation of home prescribed medications and follow up with his marketing campaign analyst, he verbalized understanding feel safe for discharge home MDM - Recheck/Abnormal Lab/Rx MDM Narrative Medical decision making narrative: 65-year-old male with a past medical history of CAD, central hypothyroidism, CHF, diabetes insipidus secondary to vasopressin deficiency, HTN, cardiac catheterization, HLD, [place] s/p CABG x2, presenting to the ED complaining of suspected abnormal sodium secondary to headache, generalized fatigue/weakness, and confusion. On exam VSS, NAD/well-appearing, ambulating with steady gait, no focal neuro deficits, A&O x3. Concern for hyper or hyponatremia vs other metabolic abnormalities. Low concern for CVA/TIA. Low concern for infectious etiology Plan: EKG, labs, UA, reassess Medical Records Attestation: I reviewed the patient's medical records. Lab Data Attestation: I reviewed the patient's lab results. Result diagrams: 03/06/21 15:15 03/06/21 15:15 Labs: Lab Results 03/06/21 03/06/21 03/06/21 Range/Units 15:15 15:15 15:15 WBC 7.4 (4.8-10.8) X10*3/uL RBC 3.79 L (4.60-5.80) X10*6/uL Hgb 11.2 L (14.0-18.0) g/dl Hct 33.9 L (42-52) % MCV 89.4 (80-98) fL MCH 29.6 (27.0-33.0) pg MCHC 33.0 (31.0-36.0) g/dl RDW 13.6 (11.0-16.0) % Plt Count 221 (160-400) X10*3/uL MPV 10.1 (9.4-12.4) fL Immature Gran % (Auto) 0.3 (0.0-0.4) % Neut % (Auto) 67.3 (45-73) % Lymph % (Auto) 18.5 L (20-40) % Pettis % (Auto) 11.6 H (2-11) % Eos % (Auto) 1.9 (0-4) % Baso % (Auto) 0.4 (0-2) % Lymph # (Auto) 1.4 (1.2-4.9) X10*3/uL [place]ettis # (Auto) 0.9 (0.1-1.2) X10*3/uL Eos # (Auto) 0.1 (0.0-0.4) X10*3/uL Baso # (Auto) 0.0 (0.0-0.2) X10*3/uL Abs Immat Gran (auto) 0.02 (0.00-0.03) X10*3/uL Absolute Neuts (auto) 5.0 (2.0-8.3) X10*3/uL Absolute Nucleated RBC 0.000 (0.0-0.012) X10*3/uL Nucleated RBC % (auto) 0.0 (0.0-0.2) /100WBC Sodium 134 L (135-145) mmol/L Potassium 3.8 (3.3-5.1) mmol/L Chloride 93 L (96-108) mmol/L Carbon Dioxide 32 H (22-29) mmol/L Anion Gap 13 (12-20) BUN 18 H (9-16) mg/dL Creatinine 0.82 (0.5-1.4) mg/dL Estim Creat Clear Calc 82.1 Estimated GFR > 60 Random Glucose 139 H D (60-115) mg/dL Calcium 9.1 (8.4-10.2) mg/dL Magnesium 2.1 (1.6-2.6) mg/dL Total Bilirubin 0.4 (0.0-1.0) mg/dL Direct Bilirubin < 0.2 (0.0-0.5) mg/dL AST 26 (5-37) U/L ALT 20 (0-40) U/L Alkaline Phosphatase 58 (39-117) U/L Total Protein 6.9 (6.5-8.0) g/dL Albumin 4.3 (3.5-5.0) g/dL Discharge Plan Discharge Clinical Impression: Headache Patient Disposition: Home, Self-Care Instructions: Acute Headache (ED) Additional Instructions: Your blood work was reassuring your sodium is 134 today Continue taking home prescribed medications including your desmopressin Please follow-up with your marketing campaign analyst and her primary care doctor If her symptoms persist or worsen, become more constant or unbearable please return to the ED Prescriptions: No Action aspirin [Adult Low Dose Aspirin] 81 mg tablet,delayed release (DR/EC) 81 mg PO DAILY Qty: 90 RF: 0 rosuvastatin 20 mg tablet 20 mg PO DAILY Qty: 30 RF: 3 ciprofloxacin HCl [Cipro] 500 mg tablet 500 mg PO BID Qty: 20 RF: 0 metronidazole [Flagyl] 500 mg tablet 500 mg PO BID Qty: 20 RF: 0 tramadol 50 mg tablet 50 mg PO Q6H PRN (Reason: pain) Qty: 20 RF: 0 desmopressin 0.1 mg tablet 0.1 mg PO BEDTIME 30 Days Qty: 30 RF: 5 levothyroxine 88 mcg tablet 88 mcg PO DAILY 90 Days Qty: 90 RF: 2 insulin aspart U-100 100 unit/mL solution See Rx Instructions subcut .COMPLEX RF: 0 sertraline 100 mg tablet 100 mg PO DAILY RF: 0 trazodone 100 mg tablet [id number] mg PO BEDTIME RF: 0 Lantus U-100 Insulin 100 unit/mL solution 10 unit subcut QPM RF: 0 Referrals: Morelia Raya MD [Physician] - 2 days
[2021-03-06 15:20] VITALS: BP 106/52; PULSE 66; RESP 18; TEMP 36.9; O2SAT 97
[2021-03-06 15:20] LABS: MANUAL DIFF FLAG NO
[2021-03-06 15:22] LABS: Basophils Percent Auto 0.4 % (0-2); Eosinophils Absolute Auto 0.1 X10*3/uL (0.0-0.4); Eosinophils Percent Auto 1.9 % (0-4); Hematocrit 33.9 % (42-52); Hemoglobin 11.2 g/dl (14.0-18.0); Imm Gran Abs Auto 0.02 X10*3/uL (0.00-0.03); Imm Gran Pct Auto 0.3 % (0.0-0.4); Lymphocytes Absolute Auto 1.4 X10*3/uL (1.2-4.9); Lymphocytes Percent Auto 18.5 % (20-40); Mean Corpuscular Hemoglobin 29.6 pg (27.0-33.0); Mean Corpuscular Volume 89.4 fL (80-98); Mean Platelet Volume 10.1 fL (9.4-12.4); Monocytes Absolute Auto 0.9 X10*3/uL (0.1-1.2); Monocytes Percent Auto 11.6 % (2-11); Neutrophils Percent Auto 67.3 % (45-73); Platelet Count 221 X10*3/uL (160-400); Red Blood Count 3.79 X10*6/uL (4.60-5.80); Red Cell Distribution Width 13.6 % (11.0-16.0); White Blood Count 7.4 X10*3/uL (4.8-10.8)
[2021-03-06 15:48] LABS: Alanine Aminotransferase 20 U/L (0-40); Albumin Level 4.3 g/dL (3.5-5.0); Alkaline Phosphatase 58 U/L (39-117); Aspartate Amino Transferase 26 U/L (5-37); Bilirubin Direct < 0.2 mg/dL (0.0-0.5); Bilirubin Total 0.4 mg/dL (0.0-1.0); Total Protein 6.9 g/dL (6.5-8.0)
[2021-03-06 15:49] LABS: Anion Gap 13 (12-20); Blood Urea Nitrogen 18 mg/dL (9-16); Calcium 9.1 mg/dL (8.4-10.2); Carbon Dioxide 32 mmol/L (22-29); Chloride 93 mmol/L (96-108); Creatinine Clr Calc Pharmacy 82.1; Estimated Glomerular Filt Rate > 60; Glucose Random 139 mg/dL (60-115); Magnesium 2.1 mg/dL (1.6-2.6); Potassium 3.8 mmol/L (3.3-5.1); Sodium 134 mmol/L (135-145)
[2021-03-06 16:53] LABS: Glucose Urine UA NEG (NEG); Leukocyte Esterase Urine NEG (NEG); Nitrite Urine NEG (NEG); PH 7.5 (5.0-8.0); Specific Gravity - Urine <= 1.005 (1.005-1.025); Urine Blood NEG (NEG); Urine Ketones NEG (NEG); Urine Protein NEG (NEG-TRACE)
[2021-03-06 17:12] LABS: Appearance Urine CLEAR; Color Urine YELLOW
== END 2021-03-06 16:55 | disposition home or self-care (01) ==
PROVIDERS: Physician Assistant; Emergency Provider Emergency Medicine; PCP Internal Medicine
DX: R51.9 Headache, unspecified (principal); E11.9 Type 2 diabetes mellitus without complications; I10 Essential (primary) hypertension; E78.5 Hyperlipidemia, unspecified; I25.2 Old myocardial infarction; Z79.82 Long term (current) use of aspirin; Z79.02 Long term (current) use of antithrombotics/antiplatelets; Z79.899 Other long term (current) drug therapy; Z79.4 Long term (current) use of insulin
CPT/HCPCS: 36415; 80048; 80076; 81003; 83735; 85025; 93005; 99283; 99284

== ENCOUNTER → 2021-03-26 12:16 | Outpatient (BNVA) | payer OTHER, SELFPAY | PROVIDERS: PCP Internal Medicine; Visit Provider Internal Medicine | DX: E03.8 Other specified hypothyroidism (principal); E23.2 Diabetes insipidus | CPT/HCPCS: 99212 ==

== ENCOUNTER 2021-04-04 10:23 | Outpatient (REF) | payer OTHER, SELFPAY ==
[2021-04-04 13:54] LABS: Alanine Aminotransferase 24 U/L (0-40); Albumin Level 4.4 g/dL (3.5-5.0); Alkaline Phosphatase 72 U/L (39-117); Anion Gap 13 (12-20); Aspartate Amino Transferase 25 U/L (5-37); Bilirubin Total 0.3 mg/dL (0.0-1.0); Blood Urea Nitrogen 17 mg/dL (9-16); Carbon Dioxide 29 mmol/L (22-29); Chloride 102 mmol/L (96-108); Estimated Glomerular Filt Rate > 60; Glucose Random 241 mg/dL (60-115); Potassium 4.2 mmol/L (3.3-5.1); Sodium 140 mmol/L (135-145); Total Protein 7.2 g/dL (6.5-8.0)
[2021-04-04 14:14] LABS: TSH reflex Free T4 1.35 uIU/mL (0.32-4.0)
== END 2021-04-04 10:24 | disposition home or self-care (01) ==
LOC: HO.10HDL 10:23
PROVIDERS: Visit Provider Internal Medicine Hypertension Specialist
DX: E87.1 Hypo-osmolality and hyponatremia (principal)
CPT/HCPCS: 36415; 80053; 84443

== ENCOUNTER 2021-10-30 06:13 | Outpatient (REF) | payer OTHER, SELFPAY ==
[2021-10-30 08:00] LABS: Cholesterol 223 mg/dL; HDL Cholesterol 70 mg/dL; LDL Cholesterol Calculated 129 mg/dl; Triglycerides 120 mg/dL
[2021-10-30 08:02] LABS: Anion Gap 13 (12-20); Blood Urea Nitrogen 18 mg/dL (9-16); Calcium 9.7 mg/dL (8.4-10.2); Carbon Dioxide 30 mmol/L (22-29); Chloride 98 mmol/L (96-108); Estimated Glomerular Filt Rate > 60; Glucose Fasting 224 mg/dL (60-99); Potassium 4.7 mmol/L (3.3-5.1); Sodium 136 mmol/L (135-145)
[2021-10-30 08:22] LABS: Estimated Average Glucose 209 mg/dL; Hemoglobin A1c % 8.9 %
[2021-10-30 08:27] LABS: Free T4 (Free Thyroxine) 0.67 ng/dL (0.71-1.85); Thyroid Stimulating Hormone 2.72 uIU/mL (0.32-4.0)
[2021-10-30 08:50] LABS: Osmolality, Serum 298 mosm/kg (281-305)
[2021-10-31 08:50] LABS: Osmolality Urine 187 mosm/kg (373-1093)
== END 2021-10-30 06:14 | disposition home or self-care (01) ==
LOC: HO.LAB 06:13
PROVIDERS: Absent Provider Internal Medicine Endocrinology, Diabetes & Metabolism; PCP Internal Medicine; Visit Provider Internal Medicine
DX: E03.8 Other specified hypothyroidism (principal); E87.1 Hypo-osmolality and hyponatremia; E23.2 Diabetes insipidus; E11.9 Type 2 diabetes mellitus without complications; I10 Essential (primary) hypertension
CPT/HCPCS: 36415; 80048; 80061; 83036; 83930; 83935; 84439; 84443

== ENCOUNTER 2021-12-17 06:36 | Outpatient (REF) | payer OTHER, SELFPAY ==
[2021-12-17 08:20] LABS: Anion Gap 13 (12-20); Blood Urea Nitrogen 7 mg/dL (9-16); Calcium 8.8 mg/dL (8.4-10.2); Carbon Dioxide 25 mmol/L (22-29); Chloride 87 mmol/L (96-108); Estimated Glomerular Filt Rate > 60; Glucose Random 142 mg/dL (60-115); Potassium 4.5 mmol/L (3.3-5.1); Sodium 122 mmol/L (135-145)
== END 2021-12-17 06:37 | disposition home or self-care (01) ==
LOC: HO.LAB 06:36
PROVIDERS: Internal Medicine Endocrinology, Diabetes & Metabolism; PCP Internal Medicine; Visit Provider Internal Medicine
DX: E23.2 Diabetes insipidus (principal)
CPT/HCPCS: 36415; 80048

== ENCOUNTER 2021-12-17 09:54 | Emergency (ER) | payer OTHER, SELFPAY ==
[2021-12-17 10:10] VITALS: BP 132/70; PULSE 62; RESP 18; TEMP 36.6; O2SAT 98; BMI 27.4
[2021-12-17 11:11] VITALS: BP 127/66; PULSE 66; RESP 12; TEMP 36.9; O2SAT 96
--- NOTE | 2021-12-17 11:31 | ED_ITS ---
HPI - General Adult General Chief complaint: Recheck/Abnormal Lab/Rx Stated complaint: Abnormal labs Time Seen by Provider: 12/17/21 10:49 Source: patient History of Present Illness HPI narrative: Patient sent in by Endocrinology secondary to hyponatremia. He apparently takes DDAVP for a possible diabetes insipidus. His sodium today is 122. His previous sodium was 136 in October on the . Related Data Home Medications Medication Instructions Recorded Confirmed sertraline 100 mg tablet 100 mg PO DAILY 06/24/20 03/26/21 trazodone 100 mg tablet [id number] mg PO BEDTIME 06/24/20 03/26/21 Previous Rx's Medication Instructions Recorded metronidazole 500 mg tablet 500 mg PO BID #20 tabs 06/25/20 (Flagyl) tramadol 50 mg tablet 50 mg PO Q6H PRN pain #20 tabs 06/25/20 rosuvastatin 20 mg tablet 20 mg PO DAILY #30 tabs 11/12/20 levothyroxine 88 mcg tablet 88 mcg PO DAILY 90 days #90 tabs 12/16/20 Allergies Allergy/AdvReac Type Severity Reaction Status Date / Time atorvastatin [From LIPITOR] AdvReac Unknown LEG Verified 03/26/21 13:35 WEAKNESS lisinopril AdvReac Unknown Verified 03/26/21 13:35 COUNT INCLUDES THE [facility] Past Medical History 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 HTN (hypertension) Hyperlipidemia Myocardial infarction Surgical History History of esophagogastroduodenoscopy (EGD) Hx of cardiac catheterization Hx of colonoscopy Hx of tonsillectomy S/P CABG x 2 Stented coronary artery Family History Family History Father Alzheimer disease Mother Diabetes mellitus Hypertension Stroke CVD (cardiovascular disease) Social History Social History Alcohol intake: never Patient Tobacco Use Status: Never used Tobacco Advance Directives: No Advance Directives Information Provided: No Physical Exam ED Vital Signs: Vital Signs - 24 hr 12/17/21 10:10 12/17/21 11:11 Temperature 98 F 98.5 F Pulse Rate 62 66 Respiratory Rate 18 12 Blood Pressure 132/70 127/66 Pulse Oximetry 98 96 Oxygen Delivery Method Room Air Room Air BMI result Body Mass Index 27.4 Const General: healthy appearing Resp Other: Clear and equal bilaterally Cardio Other: Regular rate and rhythm without murmurs rubs or gallops GI Other: Soft nontender nondistended Skin Other: Warm pink and dry Neuro Other: No focal deficit Course Course Course Narrative: Patient did not want to wait for further evaluation. Final impression hyponatremia Discharge Plan Discharge Clinical Impression: Chronic hyponatremia Patient Disposition: Elopement Prescriptions: No Action rosuvastatin 20 mg tablet 20 mg PO DAILY Qty: 30 3RF metronidazole [Flagyl] 500 mg tablet 500 mg PO BID Qty: 20 0RF tramadol 50 mg tablet 50 mg PO Q6H PRN (Reason: pain) Qty: 20 0RF levothyroxine 88 mcg tablet 88 mcg PO DAILY 90 Days Qty: 90 2RF sertraline 100 mg tablet 100 mg PO DAILY trazodone 100 mg tablet [id number] mg PO BEDTIME Discharge Date/Time: 12/17/21 11:57
--- NOTE | 2021-12-17 11:50 | PC.NURSE ---
Attempted IV, pt jerked arm in reaction, unable to get bloodwork, pt states he is refusing IV and will leave. made aware. Upon return to room pt eloped
== END 2021-12-17 11:57 | disposition left against medical advice (07) ==
PROVIDERS: Emergency Provider Emergency Medicine; PCP Internal Medicine
DX: E87.1 Hypo-osmolality and hyponatremia (principal); E11.9 Type 2 diabetes mellitus without complications; I10 Essential (primary) hypertension; E78.5 Hyperlipidemia, unspecified
CPT/HCPCS: 99283; 99284

== ENCOUNTER 2023-01-25 14:51 | Outpatient (AMB) | payer OTHER, SELFPAY ==
--- NOTE | 2023-01-25 14:54 | MHC.OFFVIS ---
Intake Vital Signs 01/25/23 14:56 Height 5 ft 3 in Weight 171 lb 8.314 oz BMI 30.4 BP 112/62 Blood Pressure Location Lt brachial Position Sitting Intake Visit Reasons: Diabetes Insipidus Intake Note: Patient present today Diabetes Insipidus. 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 He was previously followed by Dr. Antunez. He last saw Dr. Stewart on 03/26/2021 He has a history of Central Diabetes insipidus which was diagnosed by inpatient water deprivation test in 2013.He states he was diagnosed at age 10 . This appears to be partial, as his sodium did not significantly increase during the test, but he did experience dilute polyuria, with urine osm more than doubling after vasopressin administration. He was started on a low dose of desmopressin at that time. Takes 0.1 mg Desmopressin once a day He does have intact thirst mechanism and drinks a significant amount of water throughout the day. He has had repeated episodes of severe hyponatremia over the years, with 3-4 admissions over the past [address] Stewart advised him to stop the desmopressin, and limit his water intake.Not urinating frequently on desmopressin. He is currently off levothyroxine 88 mcg along with the remainder of his medications.off levothyroxine for 4 yrs Laboratory Tests 12/23/20 02/27/21 02/27/21 06:05 07:05 07:05 Sodium Creatinine Estimated GFR TSH 1.69 Free T4 0.84 Free T4 (Dialysis) 1.5 Total T3 62 L FSH 8.9 H Luteinizing Hormon e 4.3 Prolactin 6.2 Total Testosterone 460 Fr Testosterone Di trung 79.1 Sex Hormone Bind G lob 39 Somatomedin-C 106 Cortisol ACTH Urine Osmolality 02/27/21 02/27/21 03/03/21 07:05 07:05 06:24 Sodium Creatinine Estimated GFR TSH Free T4 Free T4 (Dialysis) Total T3 FSH Luteinizing Hormon e Prolactin Total Testosterone Fr Testosterone Di trung Sex Hormone Bind G lob Somatomedin-C Cortisol 25.5 H ACTH 34 Urine Osmolality 445 03/06/21 15:15 Sodium 134 L Creatinine 0.82 Estimated GFR > 60 TSH Free T4 Free T4 (Dialysis) Total T3 FSH Luteinizing Hormon e Prolactin Total Testosterone Fr Testosterone Di trung Sex Hormone Bind G lob Somatomedin-C Cortisol ACTH Urine Osmolality PFSH 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 The no thyroid nodules palpated Assessment & Plan Assessment & Plan (1) Central hypothyroidism: Code(s): E03.8 - Other specified hypothyroidism Plan: History of low free T4 with normal TSH digestive secondary hypothyroidism. Off levothyroxine. Will obtain TSH and free T4 by equilibrium dialysis with further workup after above. Will also check adrenal axis by measuring a.m. 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 Currently off vasopressin. Will reassess basic metabolic panel with sodium, plasma and urine osmolality. Patient does see a television journalist and we may want to get a 2nd opinion after above from Nephrology Orders: Orders Basic Metabolic Panel Today E03.8 - Other specified hypothyroidism, E23.2 - Diabetes insipidus Osmolality, Serum Today E03.8 - Other specified hypothyroidism, E23.2 - Diabetes insipidus Osmolality Urine Today E03.8 - Other specified hypothyroidism, E23.2 - Diabetes insipidus FT4 by [facility] 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
[2023-01-25 14:56] VITALS: BP 112/62; BMI 30.4
== END 2023-01-25 15:21 | disposition home or self-care (01) ==
PROVIDERS: PCP Internal Medicine; Visit Provider Internal Medicine Endocrinology, Diabetes & Metabolism
DX: E03.8 Other specified hypothyroidism (principal); E23.2 Diabetes insipidus
CPT/HCPCS: 99213

== ENCOUNTER → 2023-01-25 14:51 | Outpatient (BNVA) | payer OTHER, SELFPAY | PROVIDERS: Visit Provider Internal Medicine Endocrinology, Diabetes & Metabolism | DX: E03.8 Other specified hypothyroidism (principal); E23.2 Diabetes insipidus | CPT/HCPCS: 99212 ==

== ENCOUNTER 2023-03-09 05:52 | Outpatient (REF) | payer OTHER, SELFPAY ==
[2023-03-09 07:14] LABS: Osmolality, Serum 298 mosm/kg (281-305)
[2023-03-09 07:23] LABS: Anion Gap 15 (12-20); Blood Urea Nitrogen 22 mg/dL (9-16); Calcium 10.2 mg/dL (8.4-10.2); Carbon Dioxide 27 mmol/L (22-29); Chloride 100 mmol/L (96-108); Estimated Glomerular Filt Rate > 60; Glucose Random 210 mg/dL (60-115); Potassium 4.6 mmol/L (3.3-5.1); Sodium 137 mmol/L (135-145)
[2023-03-09 07:40] LABS: Thyroid Stimulating Hormone 3.07 uIU/mL (0.32-4.0)
[2023-03-09 07:41] LABS: Cortisol Random 16.3 ug/dL
[2023-03-09 08:42] LABS: Osmolality Urine 562 mosm/kg (373-1093)
[2023-03-14 10:14] LABS: FT4 by Equilib. Dialysis 0.7 ng/dL (0.9-2.2)
== END 2023-03-09 05:53 | disposition home or self-care (01) ==
LOC: HO.LAB 05:52
PROVIDERS: PCP Internal Medicine; Visit Provider Internal Medicine Endocrinology, Diabetes & Metabolism
DX: E03.8 Other specified hypothyroidism (principal); E23.2 Diabetes insipidus
CPT/HCPCS: 36415; 80048; 82533; 83930; 83935; 84439; 84443

== ENCOUNTER 2023-03-10 13:18 | Outpatient (AMB) | payer OTHER, SELFPAY ==
--- NOTE | 2023-03-10 13:19 | MHC.OFFVIS ---
Intake Vital Signs 03/10/23 13:20 Height 5 ft 3 in Weight 163 lb 12.855 oz BMI 29.0 BP 98/60 Blood Pressure Location Lt brachial Position Sitting Pulse 70 Pulse Source Pulse Oximeter Intake Visit Reasons: f/u hypothyroidism, DI Intake Note: Patient present today for Hypothyroidism follow up visit, DI. Plastic Straightening Roll Operator Required: Yes Plastic Straightening Roll Operator Language: Wireless Internet Installer Name: Radha office staff Information Interpreted: non-clinical & clinical Accompanied by: Self / Same As Patient Allergies atorvastatin [From LIPITOR] Adverse Reaction (Unknown, Verified 03/10/23 13:23) LEG WEAKNESS lisinopril Adverse Reaction (Verified 03/10/23 13:23) Unknown HPI HPI Comments History of Present Illness Details 67 YO Male with a PMHx Central Diabetes Insipidus as well as Hypothyroidism who is seen in F/U. He has a history of Central Diabetes insipidus which was diagnosed by inpatient water deprivation test in 2013.He states he was diagnosed at age 10 . This appears to be partial, as his sodium did not significantly increase during the test, but he did experience dilute polyuria, with urine osm more than doubling after vasopressin administration. He was started on a low dose of desmopressin at that time. Takes 0.1 mg Desmopressin once a day He does have intact thirst mechanism and drinks a significant amount of water throughout the day. He has had repeated episodes of severe hyponatremia over the years, with 3-4 admissions over the past [address] Stewart advised him to stop the desmopressin, and limit his water intake.Not urinating frequently on desmopressin. He is currently off levothyroxine 88 mcg along with the remainder of his medications.off levothyroxine for 4 yrs . Recent thyroid function studies were normal of levothyroxine. Recent metabolic panel was normal with normal sodium. He claims he has a longstanding history of diabetes insipidus since childhood and has been taking desmopressin 0.1 mg b.i.d.. Claims if he does not take the desmopressin, he urinates very frequently and has polydipsia Laboratory Tests 12/23/20 02/27/21 02/27/21 06:05 07:05 07:05 Sodium Creatinine Estimated GFR TSH 1.69 Free T4 0.84 Free T4 (Dialysis) 1.5 Total T3 62 L FSH 8.9 H Luteinizing Hormon e 4.3 Prolactin 6.2 Total Testosterone 460 Fr Testosterone Di trung 79.1 Sex Hormone Bind G lob 39 Somatomedin-C 106 Cortisol ACTH Urine Osmolality 02/27/21 02/27/21 03/03/21 07:05 07:05 06:24 Sodium Creatinine Estimated GFR TSH Free T4 Free T4 (Dialysis) Total T3 FSH Luteinizing Hormon e Prolactin Total Testosterone Fr Testosterone Di trung Sex Hormone Bind G lob Somatomedin-C Cortisol 25.5 H ACTH 34 Urine Osmolality 445 03/06/21 15:15 Sodium 134 L Creatinine 0.82 Estimated GFR > 60 TSH Free T4 Free T4 (Dialysis) Total T3 FSH Luteinizing Hormon e Prolactin Total Testosterone Fr Testosterone Di trung Sex Hormone Bind G lob Somatomedin-C Cortisol ACTH Urine Osmolality PFS 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 HTN (hypertension) Hyperlipidemia Myocardial infarction Surgical History History of esophagogastroduodenoscopy (EGD) Hx of cardiac catheterization Hx of colonoscopy Hx of tonsillectomy S/P CABG x 2 Stented coronary artery Family History Father Alzheimer disease Mother Diabetes mellitus Hypertension Stroke CVD (cardiovascular disease) Social History Alcohol intake: never Patient Tobacco Use Status: Never used Tobacco Physical Exam Vital Signs: BMI result Body Mass Index 29.0 Assessment & Plan Assessment & Plan (1) 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 Currently on desmopressin 0.1 mg b.i.d. with normal sodium, plasma and urine osmolality. Plan is to continue the current treatment. Will check a basic metabolic panel in 6 weeks time. Also told the patient to alert me if he experiences any unusual headache or seizure or other symptoms of hyponatremia (2) Central hypothyroidism: Code(s): E03.8 - Other specified hypothyroidism Plan: Has normal thyroid function studies off levothyroxine an a.m. cortisol is normal. 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
[2023-03-10 13:20] VITALS: BP 98/60; PULSE 70; BMI 29.0
== END 2023-03-10 13:44 | disposition home or self-care (01) ==
PROVIDERS: PCP Internal Medicine; Visit Provider Internal Medicine Endocrinology, Diabetes & Metabolism
DX: E23.2 Diabetes insipidus (principal); E03.8 Other specified hypothyroidism
CPT/HCPCS: 99213

== ENCOUNTER → 2023-03-10 13:18 | Outpatient (BNVA) | payer OTHER, SELFPAY | PROVIDERS: PCP Internal Medicine; Visit Provider Internal Medicine Endocrinology, Diabetes & Metabolism | DX: E03.8 Other specified hypothyroidism (principal); E23.2 Diabetes insipidus | CPT/HCPCS: 99212 ==

== ENCOUNTER 2023-03-24 08:54 | Emergency (ER) | payer OTHER, SELFPAY ==
[2023-03-24 09:09] VITALS: BP 138/76; PULSE 60; RESP 19; TEMP 36.6; O2SAT 98; BMI 29.7
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
== END 2023-03-24 10:11 | disposition home or self-care (01) ==
PROVIDERS: Emergency Provider Emergency Medicine Emergency Medical Services; PCP Internal Medicine
DX: R51.9 Headache, unspecified (principal); M54.89 Other dorsalgia; V43.52XA Car driver injured in collision with other type car in traffic accident, initial encounter; Y93.9 Activity, unspecified; Y92.9 Unspecified place or not applicable; Y99.9 Unspecified external cause status; I10 Essential (primary) hypertension; N25.1 Nephrogenic diabetes insipidus; Z79.899 Other long term (current) drug therapy
CPT/HCPCS: 99282; 99283

== ENCOUNTER 2023-03-26 13:22 | Outpatient (REF) | payer OTHER, SELFPAY ==
[2023-03-26 15:54] LABS: MANUAL DIFF FLAG NO
[2023-03-26 16:11] LABS: Basophils Percent Auto 0.4 % (0-2); Eosinophils Absolute Auto 0.2 X10*3/uL (0.0-0.4); Eosinophils Percent Auto 3.3 % (0-4); Hematocrit 35.8 % (42.0-52.0); Hemoglobin 12.2 g/dl (14.0-18.0); Imm Gran Abs Auto 0.02 X10*3/uL (0.00-0.03); Imm Gran Pct Auto 0.3 % (0.0-0.4); Lymphocytes Absolute Auto 1.8 X10*3/uL (1.2-4.9); Lymphocytes Percent Auto 25.2 % (20-40); Mean Corpuscular HGB Conc 34.1 g/dl (31.0-36.0); Mean Platelet Volume 11.4 fL (9.4-12.4); Monocytes Absolute Auto 0.6 X10*3/uL (0.1-1.2); Monocytes Percent Auto 7.9 % (2-11); Neutrophils Absolute Auto 4.5 x10*3/uL (2.0-8.3); Neutrophils Percent Auto 62.9 % (45-73); Platelet Count 203 X10*3/uL (160-400); Red Blood Count 4.07 X10*6/uL (4.60-5.80); Red Cell Distribution Width 13.8 % (11.0-16.0); White Blood Count 7.2 X10*3/uL (4.8-10.8)
[2023-03-26 16:34] LABS: Alanine Aminotransferase 18 U/L (0-40); Albumin Level 4.3 g/dL (3.5-5.0); Alkaline Phosphatase 60 U/L (39-117); Anion Gap 11 (12-20); Aspartate Amino Transferase 24 U/L (5-37); Bilirubin Total 0.3 mg/dL (0.0-1.0); Blood Urea Nitrogen 21 mg/dL (9-16); Calcium 9.6 mg/dL (8.4-10.2); Carbon Dioxide 30 mmol/L (22-29); Chloride 96 mmol/L (96-108); Estimated Glomerular Filt Rate > 60; Glucose Random 162 mg/dL (60-115); Lipase 14 U/L (8-78); Potassium 4.4 mmol/L (3.3-5.1); Sodium 133 mmol/L (135-145); Total Protein 7.4 g/dL (6.5-8.0)
[2023-03-26 21:24] LABS: Amylase 68 U/L (28-100)
== END 2023-03-26 13:23 | disposition home or self-care (01) ==
LOC: HO.HHCL 13:22
PROVIDERS: Visit Provider Nurse Practitioner Primary Care
DX: R10.12 Left upper quadrant pain (principal)
CPT/HCPCS: 36415; 80053; 82150; 83690; 85025

== ENCOUNTER 2023-08-18 06:50 | Outpatient (REF) | payer OTHER, SELFPAY ==
[2023-08-18 08:06] LABS: Anion Gap 13 (12-20); Blood Urea Nitrogen 18 mg/dL (9-16); Calcium 9.3 mg/dL (8.4-10.2); Carbon Dioxide 25 mmol/L (22-29); Chloride 100 mmol/L (96-108); Estimated Glomerular Filt Rate > 60; Glucose Random 172 mg/dL (60-115); Potassium 4.6 mmol/L (3.3-5.1); Sodium 133 mmol/L (135-145)
[2023-08-18 09:12] LABS: Free T4 (Free Thyroxine) 0.62 ng/dL (0.71-1.85)
== END 2023-08-18 06:51 | disposition home or self-care (01) ==
LOC: HO.LAB 06:50
PROVIDERS: PCP Internal Medicine; Referring Provider Internal Medicine; Visit Provider Internal Medicine Endocrinology, Diabetes & Metabolism
DX: E23.2 Diabetes insipidus (principal); E03.8 Other specified hypothyroidism
CPT/HCPCS: 36415; 80048; 84439; 99212

== ENCOUNTER 2023-08-18 10:20 | Outpatient (AMB) | payer OTHER, SELFPAY ==
[2023-08-18 10:25] VITALS: BP 120/64; PULSE 63; BMI 31.0
--- NOTE | 2023-08-18 10:25 | MHC.OFFVIS ---
Intake Vital Signs 08/18/23 10:25 Height 5 ft 3 in Weight 174 lb 13.225 oz BMI 31.0 BP 120/64 Blood Pressure Location Lt brachial Position Sitting Pulse 63 Pulse Source Pulse Oximeter Intake Visit Reasons: diabetes insipidus-confirmed Intake Note: Patient present today for diabetes insipidus follow up visit. [employer] Director Required: No Accompanied by: Self / Same As Patient Allergies lactose Allergy (Verified 08/18/23 10:30) Unknown atorvastatin [From LIPITOR] Adverse Reaction (Unknown, Verified 08/18/23 10:30) LEG WEAKNESS lisinopril Adverse Reaction (Verified 08/18/23 10:30) Unknown Medication List - Last Reconciled 08/18/23 by Carl Benton MD albuterol sulfate 90 mcg/actuation (Ventolin HFA) 2 puffs inhalation Q4-6H PRN albuterol sulfate 90 mcg/actuation (Ventolin HFA) 2 puffs inhalation Q4H PRN desmopressin 0.1 mg PO BID fluticasone propion-salmeterol 250-50 mcg/dose 1 ea inhalation BID insulin aspart U-100 (Novolog U-100 Insulin aspart) subcut sertraline 200 mg PO DAILY trazodone 200 mg PO BEDTIME HPI HPI Comments History of Present Illness Details 68 YO Male with a PMHx Central Diabetes Insipidus as well as Hypothyroidism who is seen in F/U. He has a history of Central Diabetes insipidus which was diagnosed by inpatient water deprivation test in 2013.He states he was diagnosed at age 10 . This appears to be partial, as his sodium did not significantly increase during the test, but he did experience dilute polyuria, with urine osm more than doubling after vasopressin administration. He was started on a low dose of desmopressin at that time. Takes 0.05 mg Desmopressin once a day He does have intact thirst mechanism and drinks a significant amount of water throughout the day. He has had repeated episodes of severe hyponatremia over the years, with 3-4 admissions over the past [address] Stewart advised him to stop the desmopressin, and limit his water intake.Not urinating frequently on desmopressin. He is currently off levothyroxine 88 mcg along with the remainder of his medications.off levothyroxine for 4 yrs . Recent thyroid function studies were normal of levothyroxine. Recent metabolic panel was normal with normal sodium. He recently had a low free T4 level per He claims he has a longstanding history of diabetes insipidus since childhood and has been taking desmopressin 0.1 mg b.i.d.. Claims if he does not take the desmopressin, he urinates very frequently and has polydipsia Laboratory Tests 12/23/20 02/27/21 02/27/21 06:05 07:05 07:05 Sodium Creatinine Estimated GFR TSH 1.69 Free T4 0.84 Free T4 (Dialysis) 1.5 Total T3 62 L FSH 8.9 H Luteinizing Hormon e 4.3 Prolactin 6.2 Total Testosterone 460 Fr Testosterone Di trung 79.1 Sex Hormone Bind G lob 39 Somatomedin-C 106 Cortisol ACTH Urine Osmolality 02/27/21 02/27/21 03/03/21 07:05 07:05 06:24 Sodium Creatinine Estimated GFR TSH Free T4 Free T4 (Dialysis) Total T3 FSH Luteinizing Hormon e Prolactin Total Testosterone Fr Testosterone Di trung Sex Hormone Bind G lob Somatomedin-C Cortisol 25.5 H ACTH 34 Urine Osmolality 445 03/06/21 15:15 Sodium 134 L Creatinine 0.82 Estimated GFR > 60 TSH Free T4 Free T4 (Dialysis) Total T3 FSH Luteinizing Hormon e Prolactin Total Testosterone Fr Testosterone Di trung Sex Hormone Bind G lob Somatomedin-C Cortisol ACTH Urine Osmolality PFSH 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 HTN (hypertension) Hyperlipidemia Myocardial infarction Surgical History S/P CABG x 2 Stented coronary artery Hx of tonsillectomy Hx of colonoscopy History of esophagogastroduodenoscopy (EGD) Hx of cardiac catheterization Family History Father Alzheimer disease Mother Diabetes mellitus Hypertension Stroke CVD (cardiovascular disease) Social History Alcohol intake: never Patient Tobacco Use Status: Never used Tobacco Physical Exam Vital Signs: Last Vital Signs Pulse 63 08/18/23 10:25 BP 120/64 08/18/23 10:25 BMI result Body Mass Index 31.0 Assessment & Plan Assessment & Plan (1) 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 Currently on desmopressin 0.1 mg b.i.d. with hyponatremia pre present. Plan is to reestablish diagnosis of diabetes insipidus to see if it is permanent. Will have patient hold desmopressin for 24 hours and go to lab and have sodium, plasma and urine osmolality to reestablish diagnosis. If patient is not able to do water deprivation test at home, may need to admit and doas inpatient (2) Central hypothyroidism: Code(s): E03.8 - Other specified hypothyroidism Plan: Has low free T4 off levothyroxine . 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
== END 2023-08-18 11:15 | disposition home or self-care (01) ==
PROVIDERS: PCP Internal Medicine; Visit Provider Internal Medicine Endocrinology, Diabetes & Metabolism
DX: E23.2 Diabetes insipidus (principal); E03.8 Other specified hypothyroidism
CPT/HCPCS: 99213

== ENCOUNTER 2023-09-23 13:21 | Outpatient (AMB) | payer OTHER, SELFPAY ==
--- NOTE | 2023-09-23 13:26 | HO.NEPHOV ---
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 He has hypertension hyperlipidemia diabetes mellitus along with hypothyroidism. He was seen during hospitalization for hyponatremia. He is currently on desmopressin for DI. He was diagnosed with DI at the age of 9. He has a good understanding of the disease. He has been taking 0.2 mg of desmopressin half tablet twice a day and he adjust the dose according to her is fluid intake. About 10 years ago he was given chlorpropamide and this was later switched to desmopressin by Dr. 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 HTN (hypertension) Hyperlipidemia Myocardial infarction Surgical History S/P CABG x 2 Stented coronary artery Hx of tonsillectomy Hx of colonoscopy History of esophagogastroduodenoscopy (EGD) Hx of cardiac catheterization Family History Father Alzheimer disease Mother Diabetes mellitus Hypertension Stroke CVD (cardiovascular disease) Social History Alcohol intake: never Patient Tobacco Use Status: Never used Tobacco Vital Signs 09/23/23 13:27 Height 5 ft 3 in Weight 170 lb BMI 30.1 BP 136/78 Blood Pressure Location Rt brachial Position Sitting Pulse 67 Pulse Source Pulse Oximeter Pulse Oximetry (%) 96 Oxygen Delivery Method Room Air Physical Exam Vital Signs: Last Vital Signs Pulse 67 09/23/23 13:27 BP 136/78 09/23/23 13:27 Pulse Ox 96 09/23/23 13:27 Oxygen Delivery Method Room Air 09/23/23 13:27 BMI result Body Mass Index 30.1 Const General: comfortable Nutritional Appearance: well nourished Orientation/consciousness: patient oriented x3 HEENT Head: No normal to inspection Mouth: moist mucous membranes Neck Neck: Yes supple and Yes no JVD Resp Auscultation: clear to auscultation bilaterally, no rales and rub present Cardio Jugular venous distension: no JVD Palpation: no palpable S3 and no palpable S4 Heart sounds: no rubs GI Palpation (GI): Soft to palpation and nontender Percussion: No Fluid wave present General: Yes no CVA tenderness Back/Spine/Pelvis Back: no CVA tenderness Skin General skin exam: no rashes or lesions noted Neuro General: patient oriented x3 Extrem General: Yes no pedal edema and No clubbing Assessment & Plan Assessment & Plan (1) 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 We will maintain current fluid intake. I will keep him on the current dose of desmopressin and monitor serum sodium periodically. Renal function stable. Blood pressure is optimal. 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
[2023-09-23 13:27] VITALS: BP 136/78; PULSE 67; O2SAT 96; BMI 30.1
== END 2023-09-23 13:44 | disposition home or self-care (01) ==
PROVIDERS: PCP Internal Medicine; Visit Provider Internal Medicine Hypertension Specialist
DX: E23.2 Diabetes insipidus (principal)
CPT/HCPCS: 99214

== ENCOUNTER → 2023-09-23 13:21 | Outpatient (BNVA) | payer OTHER, SELFPAY | PROVIDERS: PCP Internal Medicine; Visit Provider Internal Medicine Hypertension Specialist | DX: E23.2 Diabetes insipidus (principal) | CPT/HCPCS: 99212 ==

== ENCOUNTER 2024-01-17 06:56 | Outpatient (REF) | payer OTHER, SELFPAY ==
[2024-01-17 07:57] LABS: Anion Gap 13 (12-20); Blood Urea Nitrogen 12 mg/dL (9-16); Calcium 9.7 mg/dL (8.4-10.2); Carbon Dioxide 24 mmol/L (22-29); Chloride 97 mmol/L (96-108); Estimated Glomerular Filt Rate > 60; Glucose Random 198 mg/dL (60-115); Potassium 4.4 mmol/L (3.3-5.1); Sodium 130 mmol/L (135-145)
[2024-01-17 08:12] LABS: Osmolality, Serum 286 mosm/kg (281-305)
[2024-01-17 08:16] LABS: Free T4 (Free Thyroxine) 0.66 ng/dL (0.71-1.85)
[2024-01-17 10:50] LABS: Osmolality Urine 364 mosm/kg (373-1093)
== END 2024-01-17 06:57 | disposition home or self-care (01) ==
LOC: HO.LAB 06:56
PROVIDERS: PCP Internal Medicine; Visit Provider Internal Medicine Endocrinology, Diabetes & Metabolism
DX: E03.8 Other specified hypothyroidism (principal); E23.2 Diabetes insipidus; Z79.899 Other long term (current) drug therapy
CPT/HCPCS: 36415; 80048; 83930; 83935; 84439; 99212

== ENCOUNTER 2024-01-17 13:27 | Outpatient (AMB) | payer OTHER, SELFPAY ==
[2024-01-17 13:29] VITALS: BP 120/64; PULSE 86; BMI 30.1
--- NOTE | 2024-01-17 13:29 | A.OFFVIS_ITS ---
Vital Signs 01/17/24 13:29 Height 5 ft 3 in Weight 169 lb 12.095 oz BMI 30.1 BP 120/64 Blood Pressure Location Rt brachial Position Sitting Pulse 86 Pulse Source Pulse Oximeter Intake Visit Reasons: f/u DI and central hypothyroidism-confirmed Intake Note: Patient present today for DI and central hypothyroidism follow up visit. Technical Support Technician Required: No Technical Support Technician Services: Technical Support Technician Present (Via Video Call) Technical Support Technician Name: Gokul from [employer] Information Interpreted: non-clinical & clinical Accompanied by: Self / Same As Patient Allergies lactose Allergy (Verified 01/17/24 13:33) Unknown atorvastatin [From LIPITOR] Adverse Reaction (Unknown, Verified 01/17/24 13:33) LEG WEAKNESS lisinopril Adverse Reaction (Verified 01/17/24 13:33) Unknown HPI Comments Details: 68 YO Male with a PMHx ?Central Diabetes Insipidus as well as central Hypothyroidism who is seen in F/U. He has a history of Central Diabetes insipidus which was diagnosed by inpatient water deprivation test in 2013.He states he was diagnosed at age 10 . This appears to be partial, as his sodium did not significantly increase during the test, but he did experience dilute polyuria, with urine osm more than doubling after vasopressin administration. He was started on a low dose of desmopressin at that time. Takes 0.05 mg Desmopressin once a day He does have intact thirst mechanism and drinks a significant amount of water throughout the day. He has had repeated episodes of severe hyponatremia over the years, with 3-4 admissions over the past [address] Stewart advised him to stop the desmopressin, and limit his water intake.Not urinating frequently on desmopressin. He is currently off levothyroxine 88 mcg along with the remainder of his medications.off levothyroxine for 4 yrs . Recent thyroid function studies were normal of levothyroxine. Recent metabolic panel was normal with normal sodium. He recently had a low free T4 level per He claims he has a longstanding history of diabetes insipidus since childhood and has been taking desmopressin 0.1 mg b.i.d.. Claims if he does not take the desmopressin, he urinates very frequently and has polydipsia He was supposed to hold the desmopressin 24 hours and then recheck sodium, plasma osmolality, urine osmolality but he did not hold the desmopressin before the test Laboratory Tests 12/23/20 02/27/21 02/27/21 06:05 07:05 07:05 Sodium Creatinine Estimated GFR TSH 1.69 Free T4 0.84 Free T4 (Dialysis) 1.5 Total T3 62 L FSH 8.9 H Luteinizing Hormone 4.3 Prolactin 6.2 Total Testosterone 460 Fr Testosterone Dialys 79.1 Sex Hormone Bind Glob 39 Somatomedin-C 106 Cortisol ACTH Urine Osmolality 02/27/21 02/27/21 03/03/21 07:05 07:05 06:24 Sodium Creatinine Estimated GFR TSH Free T4 Free T4 (Dialysis) Total T3 FSH Luteinizing Hormone Prolactin Total Testosterone Fr Testosterone Dialys Sex Hormone Bind Glob Somatomedin-C Cortisol 25.5 H ACTH 34 Urine Osmolality 445 03/06/21 15:15 Sodium 134 L Creatinine 0.82 Estimated GFR > 60 TSH Free T4 Free T4 (Dialysis) Total T3 FSH Luteinizing Hormone Prolactin Total Testosterone Fr Testosterone Dialys Sex Hormone Bind Glob Somatomedin-C Cortisol ACTH Urine Osmolality PFSH 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 HTN (hypertension) Hyperlipidemia Myocardial infarction Surgical History S/P CABG x 2 Stented coronary artery Hx of tonsillectomy Hx of colonoscopy History of esophagogastroduodenoscopy (EGD) Hx of cardiac catheterization Family History Father Alzheimer disease Mother Diabetes mellitus Hypertension Stroke CVD (cardiovascular disease) Social History Alcohol intake: never Patient Tobacco Use Status: Never used Tobacco Physical Exam Vital Signs: Last Vital Signs Pulse 86 07/08/24 13:29 BP 120/64 01/17/24 13:29 BMI result Body Mass Index 30.1 Assessment & Plan Assessment & Plan (1) 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 Currently on desmopressin 0.1 mg b.i.d. with hyponatremia pre present. Is not clear whether patient has permanent diabetes insipidus and needs desmopressin Plan is to have the patient retest sodium, urine osmolality, serum osmolality after holding desmopressin for 24-48 hours. I discontinued his desmopressin order until the above testing is becoming hyponatremic and may not require desmopressin moving forward. I did explain to the patient's hyponatremia chronically can be a serious problem and if it is being caused by the desmopressin he should stop it (2) Central hypothyroidism: Code(s): E03.8 - Other specified hypothyroidism Category: Medical Plan: Has low free T4 off levothyroxine . He has not been taking his levothyroxine With explained to patient he needs to reinitiate levothyroxine 88 mcg and then will recheck free T4 in 4 weeks time Orders: Orders Osmolality, Serum 4 Weeks E03.8 - Other specified hypothyroidism, E23.2 - Diabetes insipidus Osmolality Urine 4 Weeks E03.8 - Other specified hypothyroidism, E23.2 - Diabetes insipidus Basic Metabolic Panel 4 Weeks E03.8 - Other specified hypothyroidism, E23.2 - Diabetes insipidus Free T4 (Free Thyroxine) 4 Weeks E03.8 - Other specified hypothyroidism, E23.2 - Diabetes insipidus Medications: Discontinued desmopressin Discontinued Reason: Doctor's Order 0.1 mg PO BID 180 tabs 3RF Coding Level of Care Code Est Pt Level 3 (51856) Diagnoses 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
== END 2024-01-17 13:50 | disposition home or self-care (01) ==
PROVIDERS: PCP Internal Medicine; Visit Provider Internal Medicine Endocrinology, Diabetes & Metabolism
DX: E23.2 Diabetes insipidus (principal); E03.8 Other specified hypothyroidism
CPT/HCPCS: 99213

== ENCOUNTER 2024-03-07 13:50 | Outpatient (REF) | payer OTHER, SELFPAY ==
--- NOTE | ~2024-03-07 | XR_ITS ---
EXAMINATION: XR SHOULDER, RIGHT CLINICAL INFORMATION: Right shoulder pain for 4 days. COMPARISON: None available. TECHNIQUE: AP external rotation, Grashey, scapular Y, and axillary views of the right shoulder. 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 Glenoid humeral joint: Mild osteoarthritis manifested by small marginal osteophytes. Incidental note made of sternotomy wires. XR/XR shoulder RT min 2V IMPRESSION: Degenerative changes of the right shoulder. Electronically signed by: Jonny Marquez MD 03/28/2024 07:12 AM EDT
== END 2024-03-07 13:51 | disposition home or self-care (01) ==
LOC: HO.HHCX 13:50
PROVIDERS: Visit Provider Internal Medicine
DX: M25.511 Pain in right shoulder (principal)
CPT/HCPCS: 73030

== ENCOUNTER 2024-04-03 11:17 | Outpatient (REF) | payer OTHER, SELFPAY ==
[2024-04-03 12:31] LABS: Osmolality, Serum 296 mosm/kg (281-305)
[2024-04-03 12:35] LABS: Anion Gap 12 (12-20); Blood Urea Nitrogen 8 mg/dL (9-16); Calcium 9.4 mg/dL (8.4-10.2); Carbon Dioxide 28 mmol/L (22-29); Chloride 105 mmol/L (96-108); Estimated Glomerular Filt Rate > 60; Glucose Random 182 mg/dL (60-115); Potassium 4.5 mmol/L (3.3-5.1); Sodium 140 mmol/L (135-145)
[2024-04-03 13:40] LABS: Osmolality Urine 152 mosm/kg (373-1093)
== END 2024-04-03 11:18 | disposition home or self-care (01) ==
LOC: HO.LAB 11:17
PROVIDERS: Absent Provider Internal Medicine Hypertension Specialist; PCP Internal Medicine; Visit Provider Internal Medicine Endocrinology, Diabetes & Metabolism
DX: E03.8 Other specified hypothyroidism (principal); E23.2 Diabetes insipidus
CPT/HCPCS: 36415; 80048; 83930; 83935; 84439

== ENCOUNTER 2024-04-04 13:18 | Outpatient (AMB) | payer OTHER, SELFPAY ==
[2024-04-04 13:19] VITALS: BP 146/84; PULSE 72; O2SAT 95; BMI 29.6
--- NOTE | 2024-04-04 13:19 | HO.NEPHOV_ITS ---
Vital Signs 04/04/24 13:19 Height 5 ft 3 in Weight 167 lb BMI 29.6 BP 146/84 H Blood Pressure Location Rt brachial Position Sitting Pulse 72 Pulse Source Pulse Oximeter Pulse Oximetry (%) 95 Oxygen Delivery Method Room Air Intake Visit Reasons: CKD/ Conf Demolition Specialist Required: No Demolition Specialist Services: Demolition Specialist Offered & Declined ([facility] strategy intern form scanned into patient chart.) Accompanied by: Self / Same As Patient Allergies lactose Allergy (Verified 04/04/24 13:21) Unknown atorvastatin [From LIPITOR] Adverse Reaction (Unknown, Verified 04/04/24 13:21) LEG WEAKNESS lisinopril Adverse Reaction (Verified 04/04/24 13:21) Unknown Medication List - Last Reconciled 04/04/24 by Sharath Ramsey MD albuterol sulfate 90 mcg/actuation (Ventolin HFA) 2 puffs inhalation Q4-6H PRN fluticasone propion-salmeterol 250-50 mcg/dose 1 ea inhalation BID insulin aspart U-100 (Novolog U-100 Insulin aspart) subcut levothyroxine 88 mcg PO DAILY sertraline 200 mg PO DAILY trazodone 200 mg PO BEDTIME HPI Comments Details: 68-year-old man with a 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 He has hypertension hyperlipidemia diabetes mellitus along with hypothyroidism. He was seen during hospitalization for hyponatremia. He is currently on desmopressin for DI. He was diagnosed with DI at the age of 9. He has a good understanding of the disease. He has been taking 0.2 mg of desmopressin half tablet twice a day and he adjust the dose according to her is fluid intake. About 10 years ago he was given chlorpropamide and this was later switched to desmopressin by Dr. Chavarria 04/04/24 Currently doing about the same Does not want to take Levothyroxine REcent Na is normal Nocturia- Usually 2- 3 times at night Recent Na 140 and U Osm 156 Also on high dose Sertaline : 200mg : But takes just 100 mg ! 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 HTN (hypertension) Hyperlipidemia Myocardial infarction Surgical History S/P CABG x 2 Stented coronary artery Hx of tonsillectomy Hx of colonoscopy History of esophagogastroduodenoscopy (EGD) Hx of cardiac catheterization Family History Father Alzheimer disease Mother Diabetes mellitus Hypertension Stroke CVD (cardiovascular disease) Social History Alcohol intake: never Patient Tobacco Use Status: Never used Tobacco Physical Exam Vital Signs: BMI result Body Mass Index 29.6 Const General: comfortable Nutritional Appearance: well nourished Orientation/consciousness: patient oriented x3 HEENT Head: No normal to inspection Mouth: moist mucous membranes Neck Neck: Yes supple and Yes no JVD Resp Auscultation: clear to auscultation bilaterally, no rales and rub present Cardio Jugular venous distension: no JVD Palpation: no palpable S3 and no palpable S4 Heart sounds: no rubs GI Palpation (GI): Soft to palpation and nontender Percussion: No Fluid wave present General: Yes no CVA tenderness Back/Spine/Pelvis Back: no CVA tenderness Skin General skin exam: no rashes or lesions noted Neuro General: patient oriented x3 Extrem General: Yes no pedal edema and No clubbing Results Reviewed Nephrology Results: Hgb 12.2 g/dl (14.0-18.0) L 03/26/23 WBC 7.2 X10*3/uL (4.8-10.8) 03/26/23 Plt Count 203 X10*3/uL (160-400) 03/26/23 Sodium 140 mmol/L (135-145) 04/03/24 Potassium 4.5 mmol/L (3.3-5.1) 04/03/24 Chloride 105 mmol/L (96-108) 04/03/24 Carbon Dioxide 28 mmol/L (22-29) 04/03/24 BUN 8 mg/dL (9-16) L 04/03/24 Creatinine 0.76 mg/dL (0.5-1.4) 04/03/24 Calcium 9.4 mg/dL (8.4-10.2) 04/03/24 Assessment & Plan Assessment & Plan (1) 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 I will keep him on the current dose of desmopressin and monitor serum sodium periodically. Renal function stable. Blood pressure is optimal. 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
== END 2024-04-04 13:36 | disposition home or self-care (01) ==
PROVIDERS: PCP Internal Medicine; Visit Provider Internal Medicine Hypertension Specialist
DX: E23.2 Diabetes insipidus (principal)
CPT/HCPCS: 99214

== ENCOUNTER → 2024-04-04 13:18 | Outpatient (BNVA) | payer OTHER, SELFPAY | PROVIDERS: PCP Internal Medicine; Visit Provider Internal Medicine Hypertension Specialist | DX: E23.2 Diabetes insipidus (principal) | CPT/HCPCS: 99212 ==

== ENCOUNTER 2025-01-15 13:16 | Outpatient (AMB) | payer OTHER, SELFPAY ==
--- NOTE | 2025-01-15 13:18 | A.OFFVIS_ITS ---
Vital Signs 01/15/25 13:22 Height 5 ft 3 in Weight 174 lb 2.643 oz BMI 30.8 BP 116/70 Blood Pressure Location Rt brachial Position Sitting Pulse 81 Pulse Source Pulse Oximeter Pulse Oximetry (%) 94 Oxygen Delivery Method Room Air Intake Visit Reasons: f/u Central DI and secondary hypothyroidism Intake Note: Patient present today for DI and central hypothyroidism follow up visit. [employer] Hand Finisher Required: Yes [employer] Hand Finisher Language: Family Development Extension Specialist Services: [employer] Hand Finisher Present [employer] Hand Finisher Name: [facility] Information Interpreted: non-clinical & clinical Accompanied by: Self / Same As Patient Allergies lactose Allergy (Verified 01/15/25 13:23) Unknown atorvastatin (From LIPITOR) Adverse Reaction (Unknown, Verified 01/15/25 13:23) LEG WEAKNESS lisinopril Adverse Reaction (Verified 01/15/25 13:23) Unknown Medication List - Last Reconciled 01/15/25 by Carl Benton MD albuterol sulfate 90 mcg/actuation (Ventolin HFA) 2 puffs inhalation Q4-6H PRN blood sugar diagnostic (OneTouch Verio test strips) As directed desmopressin 0.1 mg PO DAILY fluticasone propion-salmeterol 250-50 mcg/dose 1 ea inhalation BID insulin aspart U-100 (Novolog U-100 Insulin aspart) subcut levothyroxine 88 mcg PO DAILY sertraline 200 mg PO DAILY trazodone 200 mg PO BEDTIME HPI Comments Details: 69 YO Male with a PMHx ?Central Diabetes Insipidus as well as central Hypothyroidism who is seen in F/U. He has a history of Central Diabetes insipidus which was diagnosed by inpatient water deprivation test in 2013.He states he was diagnosed at age 10 . This appears to be partial, as his sodium did not significantly increase during the test, but he did experience dilute polyuria, with urine osm more than doubling after vasopressin administration. He was started on a low dose of desmopressin at that time. Takes 0.05 mg Desmopressin once a day He does have intact thirst mechanism and drinks a significant amount of water throughout the day. He has had repeated episodes of severe hyponatremia over the years, with 3-4 admissions over the past [address] Stewart advised him to stop the de smopressin, and limit his water intake.Not urinating frequently on desmopressin. He is currently on levothyroxine 88 mcg along . Recent thyroid function studies were normal of levothyroxine. Recent metabolic panel was normal with normal sodium. He recently had a low free T4 level per He claims he has a longstanding history of diabetes insipidus since childhood and has been taking desmopressin 0.1 mg b.i.d.. Diabetes insipidus is being managed by Nephrology Laboratory Tests 12/23/20 02/27/21 02/27/21 06:05 07:05 07:05 Sodium Creatinine Estimated GFR TSH 1.69 Free T4 0.84 Free T4 (Dialysis) 1.5 Total T3 62 L FSH 8.9 H Luteinizing Hormone 4.3 Prolactin 6.2 Total Testosterone 460 Fr Testosterone Dialys 79.1 Sex Hormone Bind Glob 39 Somatomedin-C 106 Cortisol ACTH Urine Osmolality 02/27/21 02/27/21 03/03/21 07:05 07:05 06:24 Sodium Creatinine Estimated GFR TSH Free T4 Free T4 (Dialysis) Total T3 FSH Luteinizing Hormone Prolactin Total Testosterone Fr Testosterone Dialys Sex Hormone Bind Glob Somatomedin-C Cortisol 25.5 H ACTH 34 Urine Osmolality 445 03/06/21 15:15 Sodium 134 L Creatinine 0.82 Estimated GFR > 60 TSH Free T4 Free T4 (Dialysis) Total T3 FSH Luteinizing Hormone Prolactin Total Testosterone Fr Testosterone Dialys Sex Hormone Bind Glob Somatomedin-C Cortisol ACTH Urine Osmolality The patient is a 69-year-old male presenting with diabetes insipidus and hypothyroidism. The diabetes insipidus has been managed by a fitter helper, but there was a lapse in medication prescription, prompting the need for a follow-up appointment with the fitter helper. The patient has been on medication for diabetes insipidus since the age of 10, and it is crucial for the fitter helper to continue managing this condition. Regarding hypothyroidism, the patient has been advised to take synthetic T4, but he refuses due to personal beliefs about its efficacy. Despite low thyroid levels, the patient reports feeling energetic and does not experience fatigue, which is contrary to typical hypothyroid symptoms. The patient prefers natural supplements like iodine and selenium over synthetic thyroid medication. 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 HTN (hypertension) Hyperlipidemia Myocardial infarction Surgical History S/P CABG x 2 Stented coronary artery Hx of tonsillectomy Hx of colonoscopy History of esophagogastroduodenoscopy (EGD) Hx of cardiac catheterization Family History Father Alzheimer disease Mother Diabetes mellitus Hypertension Stroke CVD (cardiovascular disease) Social History Alcohol intake: never Patient Tobacco Use Status: Never used Tobacco Physical Exam Vital Signs: Last Vital Signs Pulse 81 01/15/25 13:22 BP 116/70 01/15/25 13:22 Pulse Ox 94 01/15/25 13:22 Oxygen Delivery Method Room Air 01/15/25 13:22 BMI result Body Mass Index 30.8 Assessment & Plan Assessment & Plan (1) Central hypothyroidism: Code(s): E03.8 - Other specified hypothyroidism Category: Medical Plan: Has low free T4 off levothyroxine . 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 Currently on desmopressin 0.1 mg b.i.d. with hyponatremia pre present. Is not clear whether patient has permanent diabetes insipidus and needs desmopressin This is being managed by Nephrology Orders: Orders Free T4 (Free Thyroxine) Today E03.8 - Other specified hypothyroidism Patient Instructions: Central hypothyroidism currently being replaced on 88 mcg levothyroxine. Appears to be clinically euthyroid The patient is a 69-year-old male presenting with diabetes insipidus and hypothyroidism. The diabetes insipidus has been managed by a fitter helper, but there was a lapse in medication prescription, prompting the need for a follow-up appointment with the fitter helper. The patient has been on medication for diabetes insipidus since the age of 10, and it is crucial for the fitter helper to continue managing this condition. Regarding hypothyroidism, the patient has been advised to take synthetic T4, but he refuses due to personal beliefs about its efficacy. Despite low thyroid levels, the patient reports feeling energetic and does not experience fatigue, which is contrary to typical hypothyroid symptoms. The patient prefers natural supplements like iodine and selenium over synthetic thyroid medication. During the consultation, I discussed with the patient the importance of following up with the fitter helper for diabetes insipidus management, as they are better equipped to handle the condition. I also addressed the patient's refusal to take synthetic T4 for hypothyroidism, explaining the potential risks of untreated hypothyroidism, including fatigue and cardiac effects. The patient was informed about the limitations of natural supplements and the importance of regular monitoring of thyroid levels. - Follow up with fitter helper for diabetes insipidus management. - Consider the risks of not taking prescribed thyroid medication and discuss any concerns with your healthcare provider. 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
[2025-01-15 13:22] VITALS: BP 116/70; PULSE 81; O2SAT 94; BMI 30.8
--- OUTSIDE RECORDS SUMMARY | 2025-01-15 13:40 | XMS_ITS | Encounter Summary ---
Author Organization [facility] Address [address] [place] [address] Phone Care Team Providers [employer] Name Role Phone Gurjit Licea MD Primary Care Provider Cinda ailable Encounter Details Date Type Department Care Team (Late st Contact Info) Description 09/22/2021 Telephone [facility] [address] [place] [address] Sharath Ramsey MD Social History Tobacco Use Types Packs/Day Years Used Date Smoking Tobacco: Former Smokeless Tobacco: Former Alcohol Use Standard Drinks/Week Comments Never 0 (1 standard drink = 0.6 oz pur e alcohol) Sex and Gender Information Value Date Recorded Sex Assigned at Not on file Legal Sex Male 5:08 PM EST Gender Identity Not on file Sexual Orientation Not on file documented as of this encounter Miscellaneous Notes * Telephone Encounter - Alyssa Mathis - 09/22/2021 12:47 PM EDT Send script to provider to sign off. * Telephone Encounter - Emi Gomes - 09/22/2021 11:28 AM EDT Pt called he needs a 90 day refill for desmopressin because he is currently in [place] and doesn't know when he'll be back in [place]. Please send to [facility] on [address] in [facility]. Thank you documented in this encounter Plan of Treatment Not on file documented as of this encounter Visit Diagnoses Not on filedocumented in this encounter Care [employer] Pilot Relationship Specialty Start Date End Date Gurjit Licea MD PCP - General Internal Medicine 04/03/21 documented as of this encounter
--- OUTSIDE RECORDS SUMMARY | 2025-01-15 13:40 | XMS_ITS | Encounter Summary ---
Author Organization [employer] Address [address] [facility] 7[address] [place] [address] Care Team Providers Care Speed Reading Teacher Name Role Phone Gurjit Freitas MD Primary Care Provide r Reason for Visit * Reason Onset Date Comments [facility] insurance website down er visit 05/22/2024 Encounter Details Date Type Department Care Team ([facility] st Contact Info) Description 05/22/2024 Telephone [facility] ADULT DENTAL [address] [place] [address] Sebastian Ackerman, JOEY [address] [place] [address] [employer] insurance website down er visit Social History Tobacco Use Types Packs/Day Years Used Date Smoking Tobacco: Never Passive Smoke Exposure: Never Smokeless Tobacco: Never Depression Answer Date Recorded Patient Health Questionnaire-9 Score 4 01/03/2024 Patient Health Questionnaire-9 Score 4 01/03/2024 Last PHQ-9: Questionnaire Data Not on file 0 01/03/2024 Housing Stability Answer Date Recorded What is your housing situation today? I have aime valdez 12/15/[address] you li ve. Do you have problems with any of the following? None of the above 12/15/2023 Food Insecurity Answer Date Recorded Within the past 12 months, y ou worried that your food would run out before you got money to buy more: Sometimes True 2023 Within the past 12 months,th e food you bought just didn't last and you didn't have enough money to get more: Sometimes True 12/15/2023 Transportation Answer Date Recorded In the past 12 months, has l ack of transportation kept you from medical appts, meetings, work or from getting things needed for daily living? No 12/15/2023 Utilities Answer Date Recorded In the past 12 months, has t he electric, gas, oil or water company threatened to shut off services in your home? No 12/15/2023 Depression Answer Date Recorded Patient Health Questionnaire-2 Score 1 01/03/2024 Sex and Gender Information Value Date Recorded Sex Assigned at Male 05/11/2022 10:20 AM EDT Legal Sex Male 10:20 AM EDT Gender Identity Male 05/11/2022 10:20 AM EDT Sexual Orientation Straight 05/11/2022 10 :20 AM EDT documented as of this encounter Miscellaneous Notes * Telephone Encounter - Leelee Michel - 05/22/2024 9:10 AM EST Patient is coming in as an emergency visit and carries [employer] for insurance. [employer] website is down. desktop publishing operator is aware DR documented in this encounter Plan of Treatment Upcoming Encounters Date Type Department Care Team (Late st Contact Info) Description 03/06/2025 1:30 PM EDT Office Visit [facility] OPTOMETRY [address] [place] [address] Delia Mayes, OD [address] [place] [address] documented as of this encounter Visit Diagnoses Not on filedocumented in this encounter Additional Health Concerns Assessment Noted Time PHQ-9 Depression Total Score: 4 01/03/20 24 1:38 PM EDT documented as of this encounter Care Teams Speed Reading Teacher Relationship Specialty Start Date End Date Gurjit Freitas MD [address] [place] [address] PCP - General Internal Medicine 02/13/14 documented as of this encounter
== END 2025-01-15 14:21 | disposition home or self-care (01) ==
LOC: HO.ENCR 13:16
PROVIDERS: PCP Internal Medicine; Visit Provider Internal Medicine Endocrinology, Diabetes & Metabolism
DX: E03.8 Other specified hypothyroidism (principal); E23.2 Diabetes insipidus
CPT/HCPCS: 99213

== ENCOUNTER → 2025-01-15 13:16 | Outpatient (BNVA) | payer OTHER, SELFPAY | PROVIDERS: PCP Internal Medicine; Visit Provider Internal Medicine Endocrinology, Diabetes & Metabolism | DX: E03.8 Other specified hypothyroidism (principal); N25.1 Nephrogenic diabetes insipidus | CPT/HCPCS: 99212 ==

== ENCOUNTER 2025-02-07 06:02 | Outpatient (REF) | payer OTHER, SELFPAY ==
--- OUTSIDE RECORDS SUMMARY | 2025-02-07 06:05 | XMS_ITS | Encounter Summary ---
Author Organization [facility] Address [address] [place] [address] Phone Care Team Providers Care Apprenticeship Consultant Name Role Phone Gurjit Licea MD Primary Care Provider Cinda ailable Encounter Details Date Type Department Care Team (Late st Contact Info) Description 09/22/2021 Telephone [facility] [address] [place] [address] Sharath Ramsey MD Social History [...] for desmopressin because he is currently in [place] and doesn't know when he'll be back in [place]. Please send to [facility] on [address] in [facility]. Thank you documented in this encounter Plan of Treatment Not on file documented as of this encounter Visit Diagnoses Not on filedocumented in this encounter Care Teams Apprenticeship Consultant Relationship Specialty Start Date End Date Gurjit Licea MD PCP - General Internal Medicine 04/03/21 documented as of this encounter
--- OUTSIDE RECORDS SUMMARY | 2025-02-07 06:05 | XMS_ITS | Encounter Summary ---
Author Organization [employer] Address [address] [facility] 7[address] [place] [address] Care Team Providers Care Consolidator Name Role Phone Gurjit Freitas MD Primary Care Provide r Reason for Visit * Reason Onset Date Comments [facility] insurance website down er visit 05/22/2024 Encounter Details Date Type Department Care Team ([facility] st Contact Info) Description 05/22/2024 Telephone [facility] ADULT DENTAL [address] [place] [address] Sebastian Ackerman, JOEY [address] [place] [address] [employer] insurance website down er visit Social History [...] [employer] for insurance. [employer] website is down. desk monitor is aware DR documented in this encounter Plan of Treatment Upcoming Encounters Date Type Department Care Team (Late st Contact Info) Description 03/06/2025 1:30 PM EDT Office Visit [facility] OPTOMETRY [address] [place] [address] Delia Mayes, OD [address] [place] [address] documented as of this encounter Visit Diagnoses Not on filedocumented in this encounter Additional Health Concerns Assessment Noted Time PHQ-9 Depression Total Score: 4 01/03/20 24 1:38 PM EDT documented as of this encounter Care Teams Consolidator Relationship Specialty Start Date End Date Gurjit Freitas MD [address] [place] [address] PCP - General Internal Medicine 02/13/14 documented as of this encounter
[2025-02-07 07:49] LABS: Alanine Aminotransferase 18 U/L (0-40); Albumin Level 4.0 g/dL (3.5-5.0); Alkaline Phosphatase 70 U/L (39-117); Anion Gap 14 (12-20); Aspartate Amino Transferase 40 U/L (5-37); Blood Urea Nitrogen 12 mg/dL (9-16); Calcium 8.5 mg/dL (8.4-10.2); Carbon Dioxide 23 mmol/L (22-29); Chloride 100 mmol/L (96-108); Cholesterol 165 mg/dL (<200); Estimated Glomerular Filt Rate > 60; HDL Cholesterol 40 mg/dL (>40); Potassium 5.4 mmol/L (3.3-5.1); Sodium 132 mmol/L (135-145); Total Protein 6.9 g/dL (6.5-8.0); Triglycerides 127 mg/dL (<150)
== END 2025-02-07 06:03 | disposition home or self-care (01) ==
LOC: HO.LAB 06:02
PROVIDERS: Absent Provider Internal Medicine Hypertension Specialist; PCP Internal Medicine; Visit Provider Internal Medicine
DX: Z00.00 Encounter for general adult medical examination without abnormal findings (principal); E11.9 Type 2 diabetes mellitus without complications; E78.2 Mixed hyperlipidemia; E23.2 Diabetes insipidus; Z79.4 Long term (current) use of insulin
CPT/HCPCS: 36415; 80053; 80061; 84153

== ENCOUNTER 2025-02-08 13:02 | Outpatient (AMB) | payer OTHER, SELFPAY ==
--- OUTSIDE RECORDS SUMMARY | 2025-02-08 13:13 | XMS_ITS | Encounter Summary ---
Author Organization [employer] Address [address] [facility] 7[address] [place] [address] Care Team Providers Care Ingot Stripper Name Role Phone Gurjit Freitas MD Primary Care Provide r Reason for Visit * Reason Onset Date Comments [facility] insurance website down er visit 05/22/2024 Encounter Details Date Type Department Care Team ([facility] st Contact Info) Description 05/22/2024 Telephone [facility] ADULT DENTAL [address] [place] [address] Sebastian Ackerman, JOEY [address] [place] [address] [employer] insurance website down er visit Social History [...] [employer] for insurance. [employer] website is down. help desk analyst is aware DR documented in this encounter Plan of Treatment Upcoming Encounters Date Type Department Care Team (Late st Contact Info) Description 02/13/2025 11:15 AM EDT Office Visit [facility] MEDICINE [address] [place] [address] Gurjit Freitas MD [address] [place] [address] 03/06/2025 1:30 PM EDT Office Visit [facility] OPTOMETRY [address] [place] [address] Gerber, Delia, OD [address] [place] [address] documented as of this encounter Visit Diagnoses Not on filedocumented in this encounter Additional Health Concerns Assessment Noted Time PHQ-9 Depression Total Score: 4 01/03/20 1:38 PM EDT documented as of this encounter Care Teams Ingot Stripper Relationship Specialty Start Date End Date Gurjit Freitas MD [address] [place] [address] PCP - General Internal Medicine 02/13/14 documented as of this encounter
--- OUTSIDE RECORDS SUMMARY | 2025-02-08 13:13 | XMS_ITS | Encounter Summary ---
Author Organization [facility] Address [address] [place] [address] Phone Care Team Providers Care Tour Operator Name Role Phone Gurjit Licea MD Primary Care Provider Cinda ailable Encounter Details Date Type Department Care Team (Late st Contact Info) Description 09/22/2021 Telephone [facility] [address] [place] [address] Sharath Ramsey MD Social History [...] for desmopressin because he is currently in [place] and doesn't know when he'll be back in [place]. Please send to [facility] on [address] in [facility]. Thank you documented in this encounter Plan of Treatment Not on file documented as of this encounter Visit Diagnoses Not on filedocumented in this encounter Care Teams Tour Operator Relationship Specialty Start Date End Date Gurjit Licea MD PCP - General Internal Medicine 04/03/21 documented as of this encounter
[2025-02-08 13:37] VITALS: BP 118/62; PULSE 81; O2SAT 98; BMI 30.2
--- NOTE | 2025-02-08 13:37 | HO.NEPHOV ---
Vital Signs 02/08/25 13:37 Height 5 ft 3 in Weight 170 lb 8 oz BMI 30.2 BP 118/62 Blood Pressure Location Lt brachial Position Sitting Pulse 81 Pulse Source Pulse Oximeter Pulse Oximetry (%) 98 Oxygen Delivery Method Room Air Intake Visit Reasons: R/S 09/2024 Conf Rockboard Lather Required: No Accompanied by: Self / Same As Patient Allergies lactose Allergy (Verified 02/08/25 13:41) Unknown atorvastatin (From LIPITOR) Adverse Reaction (Unknown, Verified 02/08/25 13:41) LEG WEAKNESS lisinopril Adverse Reaction (Verified 02/08/25 13:41) Unknown Medication List - Last Reconciled 02/08/25 by Sharath Ramsey MD albuterol sulfate 90 mcg/actuation (Ventolin HFA) 2 puffs inhalation Q4-6H PRN blood sugar diagnostic (OneTouch Verio test strips) As directed desmopressin 0.1 mg PO DAILY insulin aspart U-100 (Novolog U-100 Insulin aspart) subcut trazodone 200 mg PO BEDTIME Do you need a note to return to daycare/school/sports/work: No HPI Comments Details: 68-year-old man with a 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 He has hypertension hyperlipidemia diabetes mellitus along with hypothyroidism. He was seen during hospitalization for hyponatremia. He is currently on desmopressin for DI. He was diagnosed with DI at the age of 9. He has a good understanding of the disease. He has been taking 0.2 mg of desmopressin half tablet twice a day and he adjust the dose according to her is fluid intake. About 10 years ago he was given chlorpropamide and this was later switched to desmopressin by Dr. Chavarria 04/04/24 Currently doing about the same Does not want to take Levothyroxine REcent Na is normal Nocturia- Usually 2- 3 times at night Recent Na 140 and U Osm 156 Also on high dose Sertaline : 200mg : But takes just 100 mg ! 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 CAD (coronary artery disease) Hyperlipidemia HTN (hypertension) Surgical History S/P CABG x 2 Stented coronary artery Hx of tonsillectomy Hx of colonoscopy History of esophagogastroduodenoscopy (EGD) Hx of cardiac catheterization Family History Father Alzheimer disease Mother Diabetes mellitus Hypertension Stroke CVD (cardiovascular disease) Social History Alcohol intake: never Patient Tobacco Use Status: Never used Tobacco Physical Exam Vital Signs: Last Vital Signs Pulse 81 02/08/25 13:37 BP 118/62 02/08/25 13:37 Pulse Ox 98 02/08/25 13:37 Oxygen Delivery Method Room Air 02/08/25 13:37 BMI result Body Mass Index 30.2 Const General: comfortable Nutritional Appearance: well nourished Orientation/consciousness: patient oriented x3 HEENT Head: No normal to inspection Mouth: moist mucous membranes Neck Neck: Yes supple and Yes no JVD Resp Auscultation: clear to auscultation bilaterally, no rales and rub present Cardio Jugular venous distension: no JVD Palpation: no palpable S3 and no palpable S4 Heart sounds: no rubs GI Palpation (GI): Soft to palpation and nontender Percussion: No Fluid wave present General: Yes no CVA tenderness Back/Spine/Pelvis Back: no CVA tenderness Skin General skin exam: no rashes or lesions noted Neuro General: patient oriented x3 Extrem General: Yes no pedal edema and No clubbing Results Reviewed Nephrology Results: Sodium, (135-145) 132 mmol/L L 02/07/25 Potassium, (3.3-5.1) 5.4 mmol/L H 02/07/25 Chloride, (96-108) 100 mmol/L 02/07/25 Carbon Dioxide, (22-29) 23 mmol/L 02/07/25 BUN, (9-16) 12 mg/dL 02/07/25 Creatinine, (0.5-1.4) 0.61 mg/dL 02/07/25 Calcium, (8.4-10.2) 8.5 mg/dL Δ 07/30/25 Assessment & Plan Assessment & Plan (1) 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 I will keep him on the current dose of desmopressin and monitor serum sodium periodically. Mild hyperkalemia Stop Potassium supplements low K diet Recheck Renal function stable. Blood pressure is optimal. 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
== END 2025-02-08 13:55 | disposition home or self-care (01) ==
LOC: HO.HKA 13:03
PROVIDERS: PCP Internal Medicine; Visit Provider Internal Medicine Hypertension Specialist
DX: E23.2 Diabetes insipidus (principal)
CPT/HCPCS: 99214

== ENCOUNTER → 2025-02-08 13:02 | Outpatient (BNVA) | payer OTHER, SELFPAY | PROVIDERS: PCP Internal Medicine; Visit Provider Internal Medicine Hypertension Specialist | DX: E23.2 Diabetes insipidus (principal) | CPT/HCPCS: 99212 ==

== ENCOUNTER 2025-02-14 10:18 | Outpatient (REF) | payer OTHER, SELFPAY ==
--- OUTSIDE RECORDS SUMMARY | 2025-02-14 10:53 | XMS_ITS | Encounter Summary ---
Author Organization [facility] Address [address] [place] [address] Phone Care Team Providers Care Public Health Aides Teacher Name Role Phone Gurjit Licea MD Primary Care Provider Cinda ailable Encounter Details Date Type Department Care Team (Late st Contact Info) Description 09/22/2021 Telephone [facility] [address] [place] [address] Sharath Ramsey MD Social History [...] for desmopressin because he is currently in [place] and doesn't know when he'll be back in [place]. Please send to [facility] on [address] in [facility]. Thank you documented in this encounter Plan of Treatment Not on file documented as of this encounter Visit Diagnoses Not on filedocumented in this encounter Care Teams Public Health Aides Teacher Relationship Specialty Start Date End Date Gurjit Licea MD PCP - General Internal Medicine 04/03/21 documented as of this encounter
--- OUTSIDE RECORDS SUMMARY | 2025-02-14 10:53 | XMS_ITS | Encounter Summary ---
Author Organization [employer] Address [address] [facility] [address] [place] [address] Care Team Providers Care Spring Coiling Machine Setter Name Role Phone Gurjit Freitas MD Primary Care Provide r Reason for Visit * Reason Onset Date Comments [facility] insurance website down er visit 05/22/2024 Encounter Details Date Type Department Care Team ([facility] st Contact Info) Description 05/22/2024 Telephone [facility] ADULT DENTAL [address] [place] [address] Sebastian Ackerman, JOEY [address] [place] [address] [employer] insurance website down er visit Social History [...] for insurance. [employer] website is down. desk lieutenant is aware DR documented in this encounter Plan of Treatment Upcoming Encounters Date Type Department Care Team (Late st Contact Info) Description 03/06/2025 1:30 PM EDT Office Visit [facility] OPTOMETRY [address] [place] [address] Delia Mayes, OD [address] [place] [address] documented as of this encounter Visit Diagnoses Not on filedocumented in this encounter Additional Health Concerns Assessment Noted Time PHQ-9 Depression Total Score: 4 01/03/20 24 1:38 PM EDT documented as of this encounter Care Teams Spring Coiling Machine Setter Relationship Specialty Start Date End Date Gurjit Freitas MD [address] [place] [address] PCP - General Internal Medicine 02/13/14 documented as of this encounter
[2025-02-14 11:30] LABS: Appearance Urine Clear; Glucose Urine UA Negative (Negative); PH 6.0 (5.0-9.0); Specific Gravity - Urine <= 1.005 (1.005-1.025)
[2025-02-14 12:17] LABS: Anion Gap 10 (12-20); Blood Urea Nitrogen 11 mg/dL (9-16); Calcium 9.7 mg/dL (8.4-10.2); Carbon Dioxide 30 mmol/L (22-29); Chloride 103 mmol/L (96-108); Estimated Glomerular Filt Rate > 60; Potassium 3.8 mmol/L (3.3-5.1); Sodium 139 mmol/L (135-145)
[2025-02-14 12:44] LABS: Free T4 (Free Thyroxine) 0.74 ng/dL (0.71-1.85)
[2025-02-14 13:08] LABS: Osmolality, Serum 294 mosm/kg (281-305)
== END 2025-02-14 10:19 | disposition home or self-care (01) ==
LOC: HO.HHCL 10:18
PROVIDERS: Internal Medicine Endocrinology, Diabetes & Metabolism; Internal Medicine Hypertension Specialist; PCP Internal Medicine; Visit Provider Internal Medicine
DX: E23.2 Diabetes insipidus (principal); E11.9 Type 2 diabetes mellitus without complications; Z79.4 Long term (current) use of insulin; E03.8 Other specified hypothyroidism; R10.2 Pelvic and perineal pain
CPT/HCPCS: 36415; 80048; 81001; 82043; 82570; 83930; 83935; 84439